=== PATIENT | female | born 1970 | race Caucasian/White ===

== ENCOUNTER → 2016-11-03 | Outpatient (CLI) | payer OTHER ==
--- NOTE | 2016-11-04 08:49 | MM ---
Reason for exam: screening (asymptomatic). Baseline mammogram. History: Patient has history of other cancer at age 44 and is nulliparous. Physical Findings: Nurse did not find any significant physical abnormalities on exam. MG Screening Mammo w CAD Bilateral CC and MLO view(s) were taken. The breast tissue is heterogeneously dense. This may lower the sensitivity of mammography. Finding #1: There is a typically benign equal density (isodense), partially obscured oval mass located 14 cm from the nipple in the upper outer quadrant, posterior position of the left breast. Finding #2: There are typically benign round, diffuse/scattered calcifications in the right breast. These results were verbally communicated with the patient and result sheet given to the patient on 11/03/16. ASSESSMENT: Incomplete: need additional imaging evaluation, BI-RAD 0 RECOMMENDATION: Ultrasound of the left breast. [facility] will attempt to contact patient to return for ultrasound.
--- NOTE | 2016-11-04 09:05 | USB ---
Reason for exam: additional evaluation requested from abnormal screening. History: Patient has history of other cancer at age 44 and is nulliparous. US Breast Workup Limited LT Left breast ultrasound demonstrates a 0.4 x 0.6 x 0.2cm oval lesion too small to characterize at 2 o'clock, a 1.2 x 1.2 x 0.7cm oval, cystic lesion at 2 o'clock and a 0.9 x 0.5 x 0.5cm oval, cystic lesion at 3 o'clock. These results were verbally communicated with the patient and result sheet given to the patient on 11/03/16. ASSESSMENT: Benign, BI-RAD 2 RECOMMENDATION: Return to routine screening mammogram schedule for both breasts.
== END | disposition home or self-care (01) ==
LOC: RADMAMWWP 15:30
PROVIDERS: ATTEND Internal Medicine
DX: Z12.31 Encounter for screening mammogram for malignant neoplasm of breast (principal); R92.8 Other abnormal and inconclusive findings on diagnostic imaging of breast; R92.2 Inconclusive mammogram
CPT/HCPCS: 76642; G0202

== ENCOUNTER → 2017-09-08 | Outpatient (CLI) | payer BC ==
--- NOTE | 2017-09-08 15:06 | XR ---
EXAMINATION TYPE: XR ribs LT w pa chest xray DATE OF EXAM: 09/08/2017 COMPARISON: NONE HISTORY: Left posterior lateral rib pain TECHNIQUE: One view of the chest and 4 views of the ribs are submitted FINDINGS: Lung appears clear. No consolidation, pleural effusion or pneumothorax. Heart size normal. Rib cage appears intact. Scoliotic curvature of the spine noted. IMPRESSION: No acute displaced rib fracture. If clinically warranted bone scan could BE obtained.
== END | disposition home or self-care (01) ==
LOC: RADXRMAIN 14:24
PROVIDERS: ATTEND Internal Medicine
DX: R07.89 Other chest pain (principal)

== ENCOUNTER → 2018-01-31 | Outpatient (CLI) | payer BC ==
--- NOTE | 2018-02-01 15:20 | MM ---
Reason for exam: screening (asymptomatic). Last mammogram was performed 1 year and 3 months ago. History: Patient has history of other cancer at age 44 and is nulliparous. Physical Findings: A clinical breast exam by your physician is recommended on an annual basis and results should be correlated with mammographic findings. MG Screening Mammo w CAD Bilateral CC and MLO view(s) were taken. Prior study comparison: November 03, 2016, bilateral MG screening mammo w CAD. The breast tissue is heterogeneously dense. This may lower the sensitivity of mammography. There is no discrete abnormality. No significant changes when compared with prior studies. ASSESSMENT: Negative, BI-RAD 1 RECOMMENDATION: Routine screening mammogram of both breasts in 1 year.
== END ==
LOC: RADMAMWWP 15:37
PROVIDERS: ATTEND Internal Medicine
DX: Z12.31 Encounter for screening mammogram for malignant neoplasm of breast (principal)
CPT/HCPCS: 77067

== ENCOUNTER → 2020-02-17 | Outpatient (CLI) | payer BC | END | disposition home or self-care (01) | LOC: LABPAT 09:45 | PROVIDERS: ATTEND Orthopaedic Surgery | DX: Z01.812 Encounter for preprocedural laboratory examination (principal) | CPT/HCPCS: 87070 ==

== ENCOUNTER → 2020-02-21 | Outpatient (CLI) | payer MEDICAID ==
[2020-02-21 11:30] LABS: Potassium 4.7 mmol/L (3.5-5.1)
[2020-02-21 11:32] LABS: Basophils # (A) 0.1 k/uL (0-0.2); Basophils % (A) 2 %; Eosinophils # (A) 0.3 k/uL (0-0.7); Eosinophils % (A) 6 %; HCT 37.5 % (34.0-46.0); HGB 12.1 gm/dL (11.4-16.0); Lymphocytes % (A) 23 %; MCH 31.1 pg (25.0-35.0); MCHC 32.3 g/dL (31.0-37.0); MCV 96.2 fL (80.0-100.0); Mean Platelet Volume 6.9; Monocytes # (A) 0.3 k/uL (0-1.0); Monocytes % (A) 6 %; Neutrophils # (A) 2.6 k/uL (1.3-7.7); Neutrophils % (A) 62 %; Platelet Count 319 k/uL (150-450); RDW 12.7 % (11.5-15.5); WBC 4.2 k/uL (3.8-10.6)
[2020-02-21 12:59] LABS: INR 1.1 (<1.2); Prothrombin Time 10.8 sec (9.0-12.0)
== END | disposition home or self-care (01) ==
LOC: LABPAT 10:28
PROVIDERS: ATTEND Orthopaedic Surgery
DX: Z01.818 Encounter for other preprocedural examination (principal); M17.12 Unilateral primary osteoarthritis, left knee
CPT/HCPCS: 36415; 80051; 85025; 85610

== ENCOUNTER 2020-02-24 10:32 | Day surgery (SDC) | payer BC, MEDICAID ==
[2020-02-21 09:03] VITALS: BMI 31.0
--- NOTE | 2020-02-23 11:49 | HP ---
HISTORY AND PHYSICAL REASON FOR ADMISSION: Surgery is scheduled for 02/24/2020 Rosey Lyon is a 49-year-old patient seen with symptomatic left knee osteoarthritis. We discussed options for treatment. She elected to proceed with left total knee arthroplasty. Consent was obtained. Clearance was provided by Dr. Kojo Ryan. PAST MEDICAL HISTORY: Gastroesophageal reflux disease, depression. PAST SURGICAL HISTORY: Throat and tongue surgery. MEDICATIONS: Omeprazole, ibuprofen, Prozac. ALLERGIES: None. SOCIAL HISTORY: She denies tobacco use. PHYSICAL EXAMINATION: Evaluation of the left knee: Range of motion negative 3-4 to 110. Mild effusion. Tenderness medial joint line. Crepitus along the medial and patellofemoral compartments with range of motion. There is pain with patellofemoral compression. Ligaments stable. Hip rotation without pain. Distal neurovascular exam is intact. RADIOGRAPHS: Left knee radiographs reveal severe osteoarthritic changes. IMPRESSION: 1. Left knee osteoarthritis. 2. Gastroesophageal reflux disease. PLAN: Left total knee arthroplasty. Surgery 02/24/2020. MMODL / IJN: [id number] /
[~2020-02-24 10:32] MED LIST: ACETAMINOPHEN TAB 500 MG TAB PO ONE; DEXAMETHASONE SOD PHOSPHATE 10 MG/ML 1 ML VIAL IV ONE; HYDROmorphone 0.5 MG/0.5 ML SYRINGE IVP PRN; MELOXICAM 7.5 MG TAB PO ONE; MIDAZOLAM 2 MG/2 ML VIAL IV PRN; ONDANSETRON 4 MG/2 ML VIAL IVP ONE; ROPIVACAINE 246.25 MG, EPINEPHrine 0.5 MG, KETOROLAC 30 MG, cloNIDine HCL/PF 80 MCG, WA... MISCELLANE ONE; SCOPOLAMINE 1.5MG/72HR PATCH TRANSDERM ONE; TRANEXAMIC ACID 1,000 MG in SODIUM CHLORIDE 0.9% 100 ML IVPB ONE; fentaNYL (PF) 50 MCG/ML 2 ML AMP IVP PRN
[2020-02-24] MEDS: LACTATED RINGERS 1,000 ML IV SCH ×2 (11:18→17:54)
[2020-02-24] MEDS ORDERED: fentaNYL (PF) 50 MCG/ML 2 ML AMP IV ONE (11:31)
[2020-02-24] MEDS ORDERED: MIDAZOLAM 2 MG/2 ML VIAL IV ONE (11:31)
[2020-02-24] MEDS ORDERED: ROPIVACAINE 0.2%-NS ON-Q PUMP 1,090 MG, EMPTY PAIN BALL 1 EACH MISCELLANE PRN (11:50)
--- NOTE | 2020-02-24 11:51 | P.ANPRN ---
Procedure Note - Anesthesia - Nerve Block Performed Left Adductor Canal Infusion Time Out Performed: Yes Date of Procedure: 02/24/20 Procedure Start Time: :30 Procedure Stop Time: :44 Location of Patient: PreOp Indication: Acute Post-Operative Pain, Dx/Pain Location, Requested by Surgeon Sedation Type: Sedate with meaningful contact maintained Preparation: Sterile Prep Position: Supine Catheter: Indwelling Needle Types: Pajunk Needle Gauge: 21 Ultrasound used to visualize needle placement: Yes Ultrasound used to observe medication spread: Yes Injectate: 0.5% Ropivacaine (see comment for volume) (15ml) Resistance on Injection: Normal Image Stored and Saved: Yes Events: Uneventful and Well Tolerated
[2020-02-24] MEDS ORDERED: PROPOFOL 10 MG/ML 20 ML VIAL IV ONE (12:26)
[2020-02-24] MEDS ORDERED: GLYCOPYRROLATE 0.2 MG/ML 2 ML VIAL ONE (12:26)
[2020-02-24] MEDS ORDERED: NEOSTIGMINE 1 MG/ML 10 ML VIAL ONE (12:26)
[2020-02-24] MEDS ORDERED: LIDOCAINE 1% INJ 10MG/ML (20 ML MDV) ONE (12:26)
[2020-02-24] MEDS ORDERED: fentaNYL (PF) 50 MCG/ML 2 ML AMP ONE (12:26)
[2020-02-24] MEDS ORDERED: ROCURONIUM 10 MG/ML (10 ML VIAL) IV ONE (12:26)
[2020-02-24] MEDS ORDERED: SUCCINYLCHOLINE CHLORIDE 100 MG/5 ML SYR IV ONE (12:26)
[2020-02-24] MEDS ORDERED: HYDROmorphone (PF) 1 MG/ML ONE (12:26)
[2020-02-24] MEDS ORDERED: MIDAZOLAM 2 MG/2 ML VIAL ONE (12:26)
[2020-02-24] MEDS ORDERED: TRANEXAMIC ACID 1,000 MG/10 ML VIAL ONE (12:26)
[2020-02-24] MEDS ORDERED: SODIUM CHLORIDE 0.9% 100 ML BAG ONE (12:26)
[2020-02-24] MEDS ORDERED: ceFAZolin 1,000 MG in SODIUM CHLORIDE 0.9% 1,000 ML IRRIGATION ONE (13:13)
[2020-02-24] MEDS ORDERED: LACTATED RINGERS 1,000 ML IV ONE (13:14)
[2020-02-24] MEDS ORDERED: HYDROmorphone 1 MG/ML 1 ML SYRINGE IVP PRN (14:15)
[2020-02-24] MEDS ORDERED: HYDROmorphone 0.5 MG/0.5 ML SYRINGE IVP PRN ×2 (14:15)
[2020-02-24] MEDS ORDERED: HYDROcodone/APAP 5-325MG 1 EACH TAB PO PRN ×2 (14:15)
[2020-02-24] MEDS ORDERED: ONDANSETRON 4 MG/2 ML VIAL IVP PRN (14:15)
[2020-02-24] MEDS ORDERED: NALOXONE 0.4 MG/ML 1 ML VIAL IV PRN (14:15)
--- NOTE | 2020-02-24 14:15 | P.OP ---
Date of Procedure: 02/24/20 Preoperative Diagnosis: Left knee osteoarthritis Postoperative Diagnosis: Left knee osteoarthritis Procedure(s) Performed: Left total knee arthroplasty Implants: 1. Depuy attune size 6 left cruciate retaining cemented femur 2. Depuy attune size 6 fixed bearing cemented tibial baseplate 3. Depuy attune size 6 fixed bearing cruciate retaining 10 mm polyethylene tibial insert 4. Depuy attune 38 mm all polyethylene cemented patella Anesthesia: GETA, local Surgeon: Sam Medley Waistline Joiner #1: Fernando Branch Estimated Blood Loss (ml): 40 Pathology: other (Bone) Condition: stable Disposition: PACU Indications for Procedure: 49-year-old patient seen with symptomatic left knee osteoarthritis. After treatment options were discussed, she elected to proceed with total knee arthroplasty. Operative Findings: See description of procedure Description of Procedure: Patient was taken to the operative suite after having an adductor canal catheter placed by the department of anesthesia. Patient underwent a general anesthetic by the department of anesthesia. Patient was given preoperative IV intake antibiotics and TXA. A well-padded tourniquet was placed about the left lower extremity. The lower extremity was then prepped and draped in the normal sterile orthopedic fashion. The extremity was elevated, a tourniquet was insufflated to 300. A standard anterior incision was made sharply through skin. Dissection was taken down through the subcutaneous soft tissues down to the extensor mechanism. A medial arthrotomy was performed, patella was everted and knee was flexed. There was advanced osteoarthritis noted. I introduced my distal intramedullary femoral drill. I then introduced the distal femoral cutting jig. Ryder SHEIKH secured the cutting jig with 2 pins. I held retractors in position while Ryder SHEIKH performed the distal femoral resection through the guide area we now removed her distal femoral cutting guide. We now placed our 4-in-1 femoral cutting block and positioned and it was secured with 2 pins by Ryder SHEIKH while I held the block in position. The distal femoral finishing was now completed. A proximal tibial cutting guide was positioned. I held the guide in the appropriate position with both hands well Ryder SHEIKH inserted stabilizing pins into the guide. Proximal tibial cut was made. We now placed a trial femoral component into position, along with an appropriate size tibial tray and insert. We now took the knee through range of motion and had full extension good flexion and good overall soft tissue balance noted. The patella was everted and stabilized with 2 towel clips held by Ryder SHEIKH while I performed a flush with patellar quad tendon utilizing a fresh sawblade. We templated the patella, appropriate drill holes were made. An appropriate trial patella was positioned, knee was taken through full range of motion with the patella tracking very nicely. The trial patella was removed. Drill holes were made through the femoral component. All trial components were removed after marking off the appropriate rotation of the tibia. Retractors were now positioned along the proximal tibia. An appropriate keel punch was made with the appropriate size tibial guide by myself on Ryder SHEIKH assisted by holding retractors. At this point appropriate size implants were chosen and opened. The joint was irrigated copiously with pulse lavage mechanical irrigation. The posterior capsule was infiltrated with local analgesic. The wound was irrigated with pulse lavage mechanical irrigation. We mixed antibiotic methylmethacrylate. We placed the knee into flexion. We placed multiple retractors assisted by Ryder SHEIKH to expose the proximal tibia. Once the methyl methacrylate was ready, the tibial component was cemented into place removing any excess methylmethacrylate form by both myself and Ryder SHEIKH. The femoral component was cemented into place removing the removing any excess methylmethacrylate performed by both myself and Ryder SHEIKH. We then inserted the appropriate size polyethylene tibial insert. We made sure that it was locked into position. We took the knee into full extension, and then back in a flexion making sure we had removed any excess methylmethacrylate. The patellar component was then cemented down and secured with clamp. Excess met hylmethacrylate removed. We kept the knee in full extension, patellar clamp in position until methylmethacrylate had hardened. Once it had hardened the patellar clamp was removed. The knee was taken through full range of motion. The patella tracked nicely. There was good soft tissue balancing. The tourniquet was now released. Additional hemostasis was achieved via electrocautery. A second gram of TXA was given. The wound again was irrigated with pulse lavage mechanical irrigation. The superficial soft tissues were infiltrated local analgesic. The extensor mechanism was repaired with Vicryl. We checked the repair with range of motion and it was stable. The subcutaneous soft tissues were repaired with Vicryl in layers. The skin was approximated with pernio/Dermabond. Sterile dressings were applied followed by loose web roll and Damion bandage. The patient was transferred to a bed, and taken to recovery in stable and satisfactory condition. Ryder SHEIKH assisted with this complex procedure.
--- NOTE | 2020-02-24 15:11 | XR ---
EXAMINATION TYPE: XR knee limited LT DATE OF EXAM: 02/24/2020 CLINICAL HISTORY: Left knee pain and arthritis status post total knee replacement. TECHNIQUE: Portable AP and crosstable lateral views of the left knee are obtained immediately postop eratively. COMPARISON: Left knee radiograph 10/23/2019 FINDINGS: Metallic hardware from total left knee arthroplasty is seen and appears satisfactory in al ignment and position. There is evidence of recent surgery with diffuse subcutaneous gas and vertical skin cary. IMPRESSION: METALLIC HARDWARE FROM TOTAL LEFT KNEE ARTHROPLASTY IS SATISFACTORY IN ALIGNMENT.
--- NOTE | 2020-02-24 17:03 | P.CONS ---
History of Present Illness - Reason for Consult Consult date: 02/24/20 Medical management - Chief Complaint Left knee pain - History of Present Illness This is a 49-year-old female with past medical history noted below significant for severe osteoarthritis of the left knee that failed conservative management. Patient is admitted to the hospital for elective total left knee arthroplasty. She is postoperative day #0. Patient does not have any specific concerns or complaints. I was asked to see her for medical management. Review of Systems Review of system: 14 points review of systems were obtained and were negative except to what were mentioned in the HPI. Past Medical History Past Medical History: Cancer, GERD/Reflux Additional Past Medical History / Comment(s): hx of oral and neck/cancer 2015 had chemo and radiation at that time. 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 has some Cognitive disabilities History of Any Multi-Drug Resistant Organisms: None Reported Additional Past Surgical History / Comment(s): sx to remove ca from neck and oral area Past Anesthesia/Blood Transfusion Reactions: No Reported Reaction Past Psychological History: Depression Smoking Status: Never smoker Past Alcohol Use History: None Reported Past Drug Use History: None Reported - Past Family History Father Family Medical History: Cancer Additional Family Medical History / Comment(s): throat Medications and Allergies Home Medications Medication Instructions Recorded Confirmed Type FLUoxetine HCL [PROzac] 60 mg PO DAILY 02/21/20 02/21/20 History Omeprazole 20 mg PO DAILY 02/21/20 02/21/20 History Allergies Allergy/AdvReac Type Severity Reaction Status Date / Time No Known Allergies Allergy Verified 02/21/20 08:46 Physical Exam Vitals: Vital Signs Temp Pulse Pulse Resp BP Pulse Ox 02/24/20 15:18 81 16 113/61 100 02/24/20 15:05 77 16 113/59 99 02/24/20 14:50 80 16 115/58 100 02/24/20 14:37 97.9 F 96 18 117/61 96 02/24/20 11:59 98 F 72 20 119/73 98 Intake and Output 02/24/20 02/24/20 02/24/20 06:59 14:59 22:59 Intake Total 1751 300 Output Total 40 Balance 1711 300 Intake: IV 1751 300 Output: Estimated Blood Loss 40 Other: Weight 81.9 kg General: The patient is awake and alert, in no distress Eye: there is normal conjunctiva bilaterally. Neck: The neck is supple, there is no JVD. Cardiovascular: Normal S1-S2, no S3-S4, no murmurs. Respiratory: Lungs clear to auscultation bilaterally Gastrointestinal: Abdomen is soft, nontender Musculoskeletal: There is no pedal edema. Neurological:. Speech is normal. Skin: Skin is warm and dry Assessment and Plan Assessment: 1. Postoperative day #0 status post total left knee arthroplasty, postoperative care and pain management per orthopedic. 2. DVT prophylaxis with subcu Lovenox 3. Underlying depression and GERD: Continue home medications Today, I reviewed her medication list. Continue current regimen. PT/OT consultation. We will obtain CBC and BMP in the morning. Thank you very much for the consultation. We will continue to follow up on the patient closely with you.
[2020-02-24] MEDS ORDERED: SENNOSIDES-DOCUSATE SODIUM 1 EACH TAB PO SCH (21:00)
[2020-02-25] MEDS: LACTATED RINGERS 1,000 ML IV SCH ×2 (01:56)
--- NOTE | 2020-02-25 05:33 | P.PN ---
Progress Note - Text Progress Note Date: 02/25/20 49-year-old female status post left total knee arthroplasty postop day #1. She had an adductor canal catheter placed. Overall doing well. Does endorse mild numbness down left leg likely secondary to On-Q pump. She does endorse light quadricep weakness again likely due to On-Q pump. Site looks clean dry and intact. Goals to ambulate today.
[2020-02-25 06:29] LABS: Basophils % (A) 0 %; Eosinophils # (A) 0.1 k/uL (0-0.7); Eosinophils % (A) 1 %; HCT 32.5 % (34.0-46.0); HGB 10.7 gm/dL (11.4-16.0); Lymphocytes # (A) 1.2 k/uL (1.0-4.8); Lymphocytes % (A) 14 %; MCH 31.1 pg (25.0-35.0); MCHC 32.8 g/dL (31.0-37.0); MCV 94.9 fL (80.0-100.0); Mean Platelet Volume 7.1; Monocytes # (A) 0.6 k/uL (0-1.0); Monocytes % (A) 6 %; Neutrophils # (A) 6.7 k/uL (1.3-7.7); Neutrophils % (A) 78 %; Platelet Count 250 k/uL (150-450); RBC 3.43 m/uL (3.80-5.40); RDW 12.8 % (11.5-15.5); WBC 8.6 k/uL (3.8-10.6)
[2020-02-25] MEDS ORDERED: PANTOPRAZOLE 40 MG TABLET PO SCH (07:30)
[2020-02-25 07:47] VITALS: BP 115/67; PULSE 95; RESP 17; TEMP 98.6
[2020-02-25] MEDS ORDERED: MELOXICAM 7.5 MG TAB PO SCH (09:00)
[2020-02-25] MEDS ORDERED: FLUoxetine HCL 20 MG CAP PO SCH (09:00)
[2020-02-25] MEDS ORDERED: ENOXAPARIN 30 MG/0.3 ML SYRINGE SQ SCH (09:00)
[2020-02-25 09:10] LABS: African American GFR (CKD) 119.6 (60.0-200.0); Anion Gap 6.2 mmol/L (4.00-12.00); BUN/Creat Ratio 12.86 Ratio (12.00-20.00); Calcium 9.1 mg/dL (8.7-10.3); Carbon Dioxide 25.8 mmol/L (21.6-31.8); Non-African American GFR(CKD) 103.2 (60.0-200.0); Potassium 4.2 mmol/L (3.5-5.5)
--- NOTE | 2020-02-25 10:48 | P.PN ---
Subjective Progress Note Date: 02/25/20 Principal diagnosis: Status post left total knee arthroplasty Patient is evaluated today at bedside, she is resting comfortably. She's done very well with therapy. She denies any chest pain or shortness of breath. Pain is well-controlled. Objective - Vital Signs Vital signs: Vital Signs Temp 98.6 F 02/25/20 07:00 Pulse 95 02/25/20 08:00 Resp 17 02/25/20 08:00 BP 115/67 02/25/20 07:00 Pulse Ox 98 02/25/20 07:00 Intake & Output 02/24/20 02/25/20 02/25/20 18:59 06:59 18:59 Intake Total 2050 Output Total 40 Balance 2010 Weight 81.9 kg Intake: IV 2050 Output: Estimated Blood Loss 40 Other: Voiding Method Toilet Toilet # Voids 1 1 - Exam Left lower extremity: Incision is clean, dry, and intact. The Phone dressing is in good condition. There is minimal soft tissue swelling and ecchymosis surrounding the medial and lateral aspects of the incision. Calf is soft, no tenderness with palpation. Plantar flexion, dorsiflexion, EHL, FHL are intact. Sensory exam to light touch throughout the extremity is intact, dorsal pedis pulses 2+. - Labs CBC & Chem 7: 02/25/20 05:35 02/25/20 05:35 Labs: Abnormal Lab Results - Last 24 Hours (Table) 02/25/20 Range/Units 05:35 RBC 3.43 L (3.80-5.40) m/uL Hgb 10.7 L (11.4-16.0) gm/dL Hct 32.5 L (34.0-46.0) % Assessment and Plan Assessment: Status post left total knee arthroplasty Plan: Pain control, plan for discharge home on oral medication Wound care instructions discussed DVT prophylaxis, aspirin 81 mg twice a day medical recommendations therapy and nursing after discharge Plan for discharge home today Time with Patient: Less than 30
--- NOTE | 2020-02-25 10:51 | P.DS ---
Providers Date of admission: 02/24/2020 Expected date of discharge: 02/25/20 Attending physician: Sam Medley Consults: 02/24/20 14:15 Consult Physician Routine Consulting Provider: Nora Acuna Consult Reason/Comments: Medical management Do you want consulting provider notified?: Yes Primary care physician: Stated None Hospital Course: Date of admission: 02/24/2020 Date of discharge: 02/25/2020 Admission diagnosis: Status post left knee hip arthroplasty Discharge diagnosis: Same Attending physician: Dr. Medley Surgical procedures: Left total knee arthroplasty Brief history: Patient is a 49-year-old female with a history of progressive primary left knee osteoarthritis. At this point patient has failed conservative treatment measures and has opted to proceed with a elective left total knee arthroplasty. Hospital course: Details of patient's surgery can be found in operative report. Patient tolerated the procedure well and was subsequently transported to orthopedic floor. Patient's orthopeidc and medical care was provided daily. Patient had daily laboratory tests performed for evaluation of overall blood counts. Patient had daily physical therapy to include strengthening range of motion as well as education with walker ambulation. Patient was treated with Lovenox for their postoperative DVT prophylaxis during their inpatient stay. Patient was noted to have a relatively uneventful postoperative course. Patient reported satisfactory pain control with oral pain medications by postoperative day 0. Patient showed satisfactory progress with physical therapy. Patient moved steadily through the program and had no difficulty meeting the goals by postoperative day 1. Given patient's otherwise satisfactory course and having met physical therapy goals, plan is to discharge patient home on postoperative day 1. Discharge condition/disposition: Patient will be discharged home in stable condition. Discharge medications: Instructions are given on resumption of patient's normal daily medications per primary care recommendation, in addition patient will be prescribed [place] 5 mg/325 mg, Colace 100 mg, aspirin 81 mg. Discharge instructions: 1. Wound care and infection precautions, keep incision dry and covered while showering no lotions, creams, moisturizers. No soaking, tubs, pools, hottubs. Do not scrub over the incision. 2. Weight-bear as tolerated with walker / cane until follow-up. 3. Ice and elevate when necessary. Do not exceed 20 minutes per hour with ice pack. 4. Utilize compression sleeve until seen at first follow up appointment. 5. Visiting nursing care. 6. Home physical therapy including home CPM. 7. Pain meds and anticoagulants per prescription. 8. Pain medication has potential to cause constipation. Increase oral fluid and fiber intake. Contact primary care provider if you have not had a bowel movement within 48 hours after discharge 9. No anti-inflammatory medication until discussed at first post operative visit, this including Motrin, Aleve, Mobic, Diclofenac. 10. Follow up in office at 2 weeks postop with Ryder Branch PA-C 11. Follow up with your primary care doctor 7-10 days after discharge. 12. Contact [facility] with any questions, . Procedures: Left total knee arthroplasty Patient Condition at Discharge: Good Plan - Discharge Summary Discharge Rx Participant: No New Discharge Prescriptions: New Aspirin [Adult Low Dose Aspirin EC] 81 mg PO BID #60 tablet. Docrockyte [Colace] 100 mg PO DAILY #30 capsule Hydrocodone/Acetaminophen [[place] 5-325] 1 - 2 each PO Q6HR PRN #56 tab PRN Reason: Pain Continue FLUoxetine HCL [PROzac] 60 mg PO DAILY Omeprazole 20 mg PO DAILY Discharge Medication List FLUoxetine HCL [PROzac] 60 mg PO DAILY 02/21/20 [History] Omeprazole 20 mg PO DAILY 02/21/20 [History] Aspirin [Adult Low Dose Aspirin EC] 81 mg PO BID #60 tablet. 02/25/20 [Rx] Docusate [Colace] 100 mg PO DAILY #30 capsule 02/25/20 [Rx] Hydrocodone/Acetaminophen [[place] 5-325] 1 - 2 each PO Q6HR PRN #56 tab 02/25/20 [Rx] Follow up Appointment(s)/Referral(s): Fernando Branch PAC [PHYSICIAN ICT PROGRAMMER] - 03/11/20 2:30 pm [facility] Visiting Nurse, [NON-STAFF] - Activity/Diet/Wound Care/Special Instructions: Orthopedic Discharge Instructions: 1. Wound care and infection precautions, keep incision dry and covered while showering, no lotions, creams, moisturizers. No soaking, pools, hot tubs. Do not scrub over incision. Okay to remove from dressing on 03/05/2020, okay to shower after removal of bandage 2. Weight-bear as tolerate with walker / cane until follow-up. 3. Ice and elevate when necessary. Do not exceed 20 minutes per hour with ice pack. 4. Utilize compression sleeve until seen at first follow up appointment. 5. Pain meds and anticoagulants per prescription. 6. Pain medication has potential to cause constipation. Increase oral fluid and fiber intake. Contact primary care provider if you have not had a bowel movement within 48 hours after discharge. 7. No anti-inflammatory medication until discussed at first post operative visit, this including Motrin, Aleve, Mobic, Diclofenac. 8. Follow up in office at 2 weeks postop with Ryder Branch PA-C 9. Follow up with your primary care doctor 7-10 days after discharge. 10. Contact [facility] with any questions, [phone]. 11. *Please call [facility] once home to arrange delivery of Continuous Passive Motion (CPM) machine: [phone]. Discharge Disposition: HOME WITH HOME HEALTH SERVICES
--- NOTE | 2020-02-25 18:31 | P.PN ---
Subjective Progress Note Date: 02/25/20 (delayed charting seen at 0930) Principal diagnosis: knee pain Patient is a 49-year-old female with a history of cognitive delay, GERD, and prior head and neck cancer who presented for elective left total knee arthroplasty. She underwent surgery on 02/24 without any immediate postoperative complications. Patient seen and examined at bedside. No chest pain, no shortness of breath, pain farily well controlled. General: non toxic, no distress, appears at stated age Derm: warm, dry Head: atraumatic, normocephalic, symmetric Eyes: EOMI, no lid lag, anicteric sclera Mouth: no lip lesion, mucus membranes moist Cardiovascular: S1S2 reg, no murmur, positive posterior tibial pulse bilateral, Lungs: CTA bilateral, no rhonchi, no rales , no accessory muscle use Abdominal: soft, nontender to palpation, no guarding, no appreciable organomegaly Ext: no gross muscle atrophy, trace edema, no contractures Neuro: CN II-XI grossly intact, no focal neuro deficits Psych: Alert, oriented, appropriate affect Left total knee arthroplasty. ASA BID GERD - PPI Cognitive delay -supportive care Objective - Vital Signs Vital signs: Vital Signs Temp 98.6 F 02/25/20 07:00 Pulse 95 02/25/20 08:00 Resp 17 02/25/20 08:00 BP 115/67 02/25/20 07:00 Pulse Ox 98 02/25/20 07:00 Intake & Output 02/24/20 02/25/20 02/25/20 18:59 06:59 18:59 Intake Total 2050 Output Total 40 2010 Weight 81.9 kg Intake: IV 2050 Output: Estimated Blood Loss 40 Other: Voiding Method Toilet Toilet # Voids 1 1 - Labs CBC & Chem 7: 02/25/20 05:35 02/25/20 05:35 Labs: Abnormal Lab Results - Last 24 Hours (Table) 02/25/20 Range/Units 05:35 RBC 3.43 L (3.80-5.40) m/uL Hgb 10.7 L (11.4-16.0) gm/dL Hct 32.5 L (34.0-46.0) %
== END 2020-02-25 12:07 | disposition home health service (06) ==
LOC: OR 10:32 → 4SSUR 14:08 → OR 02-25 12:07
PROVIDERS: ATTEND Orthopaedic Surgery
DX: M17.12 Unilateral primary osteoarthritis, left knee (principal); K21.9 Gastro-esophageal reflux disease without esophagitis; F32.9 Major depressive disorder, single episode, unspecified; I10 Essential (primary) hypertension; Z85.810 Personal history of malignant neoplasm of tongue; Z79.82 Long term (current) use of aspirin; Z92.21 Personal history of antineoplastic chemotherapy; Z92.3 Personal history of irradiation; Z80.8 Family history of malignant neoplasm of other organs or systems
CPT/HCPCS: 97110; 97161; 64448; 76942; 80048; 85025; 73560; 27447; C1776; C1713; J2250; J0171; J1100; J2710; J0690 ×3; J2405; J2001; J3010; J1885; J1650; J1170; J2795 ×2; J0330; J2704; J0735

== ENCOUNTER 2020-07-28 09:52 | Emergency (ER) | payer MEDICAID, OTHER ==
[2020-07-28 10:03] VITALS: RESP 18
[2020-07-28] MEDS ORDERED: SODIUM CHLORIDE 0.9% 1,000 ML IV STA (10:11)
[2020-07-28] MEDS ORDERED: SODIUM CHLORIDE 0.9% 500 ML 500 ML IV STA (10:11)
[2020-07-28] MEDS ORDERED: DIPH,PERTUS(ACELL)TETVAC-LF 0.5 ML VIAL IM ONE (10:12)
[2020-07-28] MEDS ORDERED: ACETAMINOPHEN TAB 500 MG TAB PO STA (10:12)
[2020-07-28 10:31] LABS: Basophils % (A) 1 %; Eosinophils # (A) 0.4 k/uL (0-0.7); Eosinophils % (A) 6 %; HCT 36.2 % (34.0-46.0); HGB 12.1 gm/dL (11.4-16.0); Lymphocytes # (A) 1.1 k/uL (1.0-4.8); Lymphocytes % (A) 18 %; MCHC 33.4 g/dL (31.0-37.0); MCV 89.7 fL (80.0-100.0); Mean Platelet Volume 7.8; Monocytes # (A) 0.3 k/uL (0-1.0); Monocytes % (A) 4 %; Neutrophils # (A) 4.2 k/uL (1.3-7.7); Neutrophils % (A) 70 %; Platelet Count 309 k/uL (150-450); RBC 4.03 m/uL (3.80-5.40); RDW 13.7 % (11.5-15.5)
[2020-07-28 10:42] LABS: Albumin 3.8 g/dL (3.5-5.0); Calcium 9.4 mg/dL (8.4-10.2); Magnesium 1.8 mg/dL (1.6-2.3); Potassium 4.1 mmol/L (3.5-5.1); Total Bilirubin 0.3 mg/dL (0.2-1.3); Total Protein 6.5 g/dL (6.3-8.2)
--- NOTE | 2020-07-28 10:43 | XR ---
EXAMINATION TYPE: XR chest 2V DATE OF EXAM: 07/28/2020 COMPARISON: 09/08/2017 HISTORY: 50-year-old female R07.89, chest wall pain. TECHNIQUE: AP and lateral views FINDINGS: The cardiomediastinal silhouette, aorta, and pulmonary vasculature are within normal limits. Lungs an d pleural spaces are clear. There is mild to moderate degenerative disc disease throughout an essential weighted lower thoracic k yphosis. IMPRESSION: No acute cardiopulmonary process. Accentuated lower thoracic kyphosis with mild to moderate multileve l degenerative disc disease.
[2020-07-28 10:53] LABS: Prothrombin Time 10.7 sec (9.0-12.0)
--- NOTE | 2020-07-28 10:57 | CT ---
EXAMINATION TYPE: CT brain wo con DATE OF EXAM: 07/28/2020 COMPARISON: None HISTORY: 50-year-old female Syncope, facial trauma TECHNIQUE: Examination was done in axial plane without intravenous contrast. Coronal and sagittal r econstructions performed. CT DLP: 1315.4 mGycm Automated exposure control for dose reduction was used. FINDINGS: There is no evidence of acute intracranial hemorrhage, acute ischemic changes, mass, mass-effect, or extra-axial fluid collection. There is no effacement of cerebral sulci or basal subarachnoid cister ns. There is no hydrocephalus. There is no midline shift. Nunez-white matter distinction is preserv ed. Mastoid air cells well pneumatized. No calvarial fracture. Facial bones reported separately. IMPRESSION: No acute intracranial abnormality seen. Facial bones reported separately.
--- NOTE | 2020-07-28 11:02 | ED ---
General Adult HPI - General Chief complaint: Syncope Stated complaint: [facility]- fall Time Seen by Provider: 07/28/20 10:01 Source: patient, EMS Mode of arrival: EMS Limitations: no limitations - History of Present Illness Initial comments: 50-year-old female patient presents to the emergency department today for evaluation after experiencing a syncopal event at work. Patient states she started to feel hot and dizzy stepped outside of her room and passed out. She fell forward hitting her face. She is unsure how long she was unconscious for. Patient is reporting facial pain especially over the left eye and upper lip. Denies any headache, blurred vision, double vision. States she does feel weak and dizzy still. Denies any numbness, tingling, weakness to her extremities. She denies any chest pain or shortness of breath. Denies any bloody or black stools. Denies current nausea vomiting or diarrhea. Denies history of passing out. She is treated for a pressure but denies any other medical problems. Patient denies any recent rash, fever, chills, cough, abdominal pain, constipation, back pain, hematuria, dysuria, urinary urgency, urinary frequency, or any other complaints. - Related Data Home Medications Medication Instructions Recorded Confirmed FLUoxetine HCL [PROzac] 60 mg PO DAILY 02/21/20 07/28/20 Ibuprofen [Motrin] 800 mg PO TID PRN 07/28/20 07/28/20 Omeprazole 40 mg PO DAILY 07/28/20 07/28/20 Allergies Allergy/AdvReac Type Severity Reaction Status Date / Time No Known Allergies Allergy Verified 07/28/20 12:48 Review of Systems ROS Statement: Those systems with pertinent positive or pertinent negative responses have been documented in the HPI. ROS Other: All systems not noted in ROS Statement are negative. 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 Vital signs upon presentation are temperature 97.8F, pulse 73, respirations 18, blood pressure 95/70, pulse ox 100% on room air.) Eye exam: Present: normal appearance, PERRL, EOMI. Absent: scleral icterus, conjunctival injection, nystagmus, periorbital swelling ENT exam: Present: normal exam, normal oropharynx, mucous membranes moist Respiratory exam: Present: normal lung sounds bilaterally. Absent: respiratory distress, wheezes, rales, rhonchi, stridor Cardiovascular Exam: Present: regular rate, normal rhythm, normal heart sounds. Absent: systolic murmur, diastolic murmur, rubs, gallop, clicks GI/Abdominal exam: Present: soft, normal bowel sounds. Absent: distended, tenderness, guarding, rebound, rigid Neurological exam: Present: alert, oriented X3, CN II-XII intact Psychiatric exam: Present: normal affect, normal mood Skin exam: Present: warm, dry, intact, normal color. Absent: rash Course Vital Signs 07/28/20 07/28/20 07/28/20 09:56 10:04 10:05 Temperature 97.8 F Pulse Rate 73 Pulse Rate [ 72 73 [employer] Attendant ] Pulse Rate [ Sitting [employer] Attendant] Pulse Rate [ Standing [employer] Attendant ] Pulse Rate [ Supine [employer] Attendant] Respiratory 18 18 18 Rate Blood Pressure 95/70 Blood Pressure 116/31 [Right Arm Sitting] Blood Pressure [Right Arm Standing] Blood Pressure 111/70 [Right Arm Supine] O2 Sat by Pulse 100 100 100 Oximetry 07/28/20 07/28/20 07/28/20 10:06 10:20 11:16 Temperature Pulse Rate 68 65 Pulse Rate [ 72 [employer] Plant Attendant ] Pulse Rate [ Sitting [employer] Plant Attendant] Pulse Rate [ Standing [employer] Plant Attendant ] Pulse Rate [ Supine [employer] Attendant] Respiratory 18 18 18 Rate Blood Pressure 116/70 106/63 Blood Pressure [Right Arm Sitting] Blood Pressure 88/23 [Right Arm Standing] Blood Pressure [Right Arm Supine] O2 Sat by Pulse 100 100 100 Oximetry 07/28/20 07/28/20 11:58 13:03 Temperature 97.7 F Pulse Rate 74 Pulse Rate [ Waste[employer] Plant Attendant ] Pulse Rate [ 87 Sitting Waste[employer] Plant Attendant] Pulse Rate [ 77 Standing Waste[employer] Plant Attendant ] Pulse Rate [ 78 Supine Waste[employer] Plant Attendant] Respiratory 18 18 Rate Blood Pressure 116/67 Blood Pressure 132/81 [Right Arm Sitting] Blood Pressure 122/76 [Right Arm Standing] Blood Pressure 128/74 [Right Arm Supine] O2 Sat by Pulse 100 100 Oximetry EKG Findings - EKG Comments: EKG Findings:: EKG obtained at 954 shows normal sinus rhythm with a prolonged QT interval. Ventricular rate is 76, ME interval 162, QRS duration 102, QT 4:30, QTC 483. No evidence of ST elevation or depression. Procedures - Laceration Laceration #1 Consent Obtained: verbal consent Indication: laceration Site: lip Size (cm): 1 Description: linear Depth: simple, single layer Anesthetic Used: lidocaine 1% Anesthesia Technique: local infiltration Amount (mls): 1 Pre-repair: irrigated extensively Type of Sutures: nylon Size of Sutures: 6-0 Number of Sutures: 3 Technique: simple, interrupted Patient Tolerated Procedure: well, no complications Medical Decision Making - Medical Decision Making 50-year-old female patient presents to the emergency department today for evaluation of syncope, facial injury. Symptoms started while at work. Physical examination did reveal left suborbital abrasion and ecchymosis. She also had laceration to the lip over the vermilion border in the left upper she also had oh larger one to 2 cm laceration to the mucosal surface of the other upper lip which we did not repair. Labs reviewed and are unremarkable. EKG unremarkable. CT facial bones showed nasal bone fracture, CT brain negative. She did have orthostatic hypotension, decreased to the 80s systolic while standing became very dizzy. She was given 1500 mL of normal saline. Afterwards blood pressures were normal, orthostatic vital signs were normal, and she was able to ambulate to the bathroom and back without difficulty. States she is feeling better. Did update her tetanus vaccine. She will be discharged follow up with her primary care physician for recheck in 1-2 days. She is instructed to return in 3 days to have the stitches removed. She is educated regarding wound care and signs or symptoms of infection. She is instructed to avoid blowing her nose. Instructed to follow-up with ENT specialist in 1-2 days. Return parameters were discussed in detail. Patient and caregiver verbalized understanding and agree with this plan. Case discussed with my attending Dr. Pineda. - Lab Data Result diagrams: 07/28/20 10:20 07/28/20 10:20 Lab Results 07/28/20 07/28/2007/28/21 Range/Units 10:20 10:20 10:20 WBC 6.0 (3.8-10.6) k/uL RBC 4.03 (3.80-5.40) m/uL Hgb 12.1 (11.4-16.0) gm/dL Hct 36.2 (34.0-46.0) % MCV 89.7 (80.0-100.0) fL MCH 30.0 (25.0-35.0) pg MCHC 33.4 (31.0-37.0) g/dL RDW 13.7 (11.5-15.5) % Plt Count 309 (150-450) k/uL MPV 7.8 Neutrophils % 70 % Lymphocytes % 18 % Monocytes % 4 % Eosinophils % 6 % Basophils % 1 % Neutrophils # 4.2 (1.3-7.7) k/uL Lymphocytes # 1.1 (1.0-4.8) k/uL Monocytes # 0.3 (0-1.0) k/uL Eosinophils # 0.4 (0-0.7) k/uL Basophils # 0.0 (0-0.2) k/uL PT 10.7 (9.0-12.0) sec INR 1.0 (<1.2) APTT 20.8 L (22.0-30.0) sec Sodium (137-145) mmol/L Potassium (3.5-5.1) mmol/L Chloride (98-107) mmol/L Carbon Dioxide (22-30) mmol/L Anion Gap mmol/L BUN (7-17) mg/dL Creatinine (0.52-1.04) mg/dL Est GFR (CKD-EPI)AfAm (>60 ml/min/1.73 sqM) Est GFR (CKD-EPI)NonAf (>60 ml/min/1.73 sqM) Glucose (74-99) mg/dL Calcium (8.4-10.2) mg/dL Magnesium (1.6-2.3) mg/dL Total Bilirubin (0.2-1.3) mg/dL AST (14-36) U/L ALT (4-34) U/L Alkaline Phosphatase (38-126) U/L Troponin I (0.000-0.034) ng/mL Total Protein (6.3-8.2) g/dL Albumin (3.5-5.0) g/dL Urine Color Yellow Urine Appearance Cloudy H (Clear) Urine pH 5.5 (5.0-8.0) Ur Specific Ubly 1.033 (1.001-1.035) Urine Protein 1+ H (Negative) Urine Glucose (UA) Negative (Negative) Urine Ketones 1+ H (Negative) Urine Blood Moderate H (Negative) Urine Nitrite Negative (Negative) Urine Bilirubin Negative (Negative) Urine Urobilinogen 3.0 (<2.0) mg/dL Ur Leukocyte Esterase Small H (Negative) Urine RBC 7 H (0-5) /hpf Urine WBC 2 (0-5) /hpf Ur Squamous Epith Cells 7 H (0-4) /hpf Urine Bacteria Occasional H (None) /hpf Hyaline Casts 51 H (0-2) /lpf Urine Mucus Many H (None) /hpf 07/28/20 07/28/20 Range/Units 10:20 10:20 WBC (3.8-10.6) k/uL RBC (3.80-5.40) m/uL Hgb (11.4-16.0) gm/dL Hct (34.0-46.0) % MCV (80.0-100.0) fL MCH (25.0-35.0) pg MCHC (31.0-37.0) g/dL RDW (11.5-15.5) % Plt Count (150-450) k/uL MPV Neutrophils % % Lymphocytes % % Monocytes % % Eosinophils % % Basophils % % Neutrophils # (1.3-7.7) k/uL Lymphocytes # (1.0-4.8) k/uL Monocytes # (0-1.0) k/uL Eosinophils # (0-0.7) k/uL Basophils # (0-0.2) k/uL PT (9.0-12.0) sec INR (<1.2) APTT (22.0-30.0) sec Sodium 139 (137-145) mmol/L Potassium 4.1 (3.5-5.1) mmol/L Chloride 107 (98-107) mmol/L Carbon Dioxide 22 (22-30) mmol/L Anion Gap 10 mmol/L BUN 20 H (7-17) mg/dL Creatinine 0.99 (0.52-1.04) mg/dL Est GFR (CKD-EPI)AfAm 78 (>60 ml/min/1.73 sqM) Est GFR (CKD-EPI)NonAf 68 (>60 ml/min/1.73 sqM) Glucose 131 H (74-99) mg/dL Calcium 9.4 (8.4-10.2) mg/dL Magnesium 1.8 (1.6-2.3) mg/dL Total Bilirubin 0.3 (0.2-1.3) mg/dL AST 22 (14-36) U/L ALT 14 (4-34) U/L Alkaline Phosphatase 103 (38-126) U/L Troponin I <0.012 (0.000-0.034) ng/mL Total Protein 6.5 (6.3-8.2) g/dL Albumin 3.8 (3.5-5.0) g/dL Urine Color Urine Appearance (Clear) Urine pH (5.0-8.0) Ur Specific Ubly (1.001-1.035) Urine Protein (Negative) Urine Glucose (UA) (Negative) Urine Ketones (Negative) Urine Blood (Negative) Urine Nitrite (Negative) Urine Bilirubin (Negative) Urine Urobilinogen (<2.0) mg/dL Ur Leukocyte Esterase (Negative) Urine RBC (0-5) /hpf Urine WBC (0-5) /hpf Ur Squamous Epith Cells (0-4) /hpf Urine Bacteria (None) /hpf Hyaline Casts (0-2) /lpf Urine Mucus (None) /hpf - Radiology Data Radiology results: report reviewed, image reviewed Disposition Clinical Impression: Syncope, Orthostatic hypotension, Nasal bone fracture, Facial contusion, Laceration of face Disposition: HOME SELF-CARE Condition: Good Instructions (If sedation given, give patient instructions): Care For Your Stitches (ED), Nasal Fracture (ED), Laceration (ED), Syncope (ED) Additional Instructions: Avoid blowing your nose. Follow-up with ENT specialist as soon as possible. Apply ice to the painful areas. Keep wounds clean and dry. Increase fluids. Follow up with her primary care physician for recheck in 1-2 days. Return Return to the emergency department for any new, worsening, or concerning symptoms. Is patient prescribed a controlled substance at d/c from ED?: No Referrals: Kojo Ryan MD [Primary Care Provider] - 1-2 days Time of Disposition: 13:43
--- NOTE | 2020-07-28 11:02 | CT ---
EXAMINATION TYPE: CT facial bones wo con DATE OF EXAM: 07/28/2020 COMPARISON: None HISTORY: 50-year-old female with pain after Syncope, Facial trauma TECHNIQUE: Contiguous axial scanning of the facial bones without IV contrast. Coronal and sagittal re constructions performed. CT DLP: Included with brain DLP of 1315.4 mGycm Automated exposure control for dose reduction was used. FINDINGS: Numerous surgical clips along the floor the mouth and submandibular regions. The mandible, TMJ's, pterygoid plates, zygomatic arches are intact. Mild mucosal thickening floor of the left maxillary sinus. Trace mucosal thickening ethmoid air cells . No air-fluid levels. Orbits and globes appear grossly intact. Slight fragmentation of the right paramedian nasal bone, axial image 55. Suspect a minimally angulate d fracture of the left nasal bone, axial image 54. No significant overlying soft tissue swelling. No additional facial bone fracture identified. IMPRESSION: SUBTLE NASAL BONE FRACTURES ARE SUGGESTED, MILDLY COMMINUTED ON THE RIGHT AND MINIMALLY ANGULATED ON THE LEFT. NO ADDITIONAL FACIAL BONE FRACTURE SEEN.
[2020-07-28 11:13] LABS: Partial Thromboplastin Time 20.8 sec (22.0-30.0)
[2020-07-28 12:00] VITALS: TEMP 97.7
[2020-07-28] MEDS ORDERED: LIDOCAINE 1% INJ 10MG/ML (20 ML MDV) SQ ONE (12:57)
[2020-07-28 13:08] VITALS: BP 128/74; PULSE 78
[2020-07-28 13:42] LABS: Appearance,Urine Cloudy (Clear); Bacteria,Urine Occasional /hpf; Bilirubin,Urine Negative (Negative); Blood,Urine Moderate (Negative); Color,Urine Yellow; Glucose,Urine (UA) Negative (Negative); Hyaline Casts,Urine 51 /lpf (0-2); Ketones,Urine 1+ (Negative); Leukocyte Esterase,Urine Small (Negative); Mucus,Urine Many /hpf; Nitrite,Urine Negative (Negative); PH, Urine 5.5 (5.0-8.0); Protein,Urine 1+ (Negative); RBC,Urine 7 /hpf (0-5); Specific Gravity,Urine 1.033 (1.001-1.035); Squamous Epithelial Cell,Urine 7 /hpf (0-4); WBC,Urine 2 /hpf (0-5)
[2020-07-28] MEDS ORDERED: BACITRACIN OINT 1 EACH PACKET TOPICAL ONE (13:43)
[2020-07-28] MEDS ORDERED: ACET/COD 300 MG/30 MG STARTER PACK 6 TAB BTL PO STA (13:43)
== END 2020-07-28 14:01 | disposition home or self-care (01) ==
LOC: EC 09:52
DX: S02.2XXA Fracture of nasal bones, initial encounter for closed fracture (principal); S01.511A Laceration without foreign body of lip, initial encounter; I95.1 Orthostatic hypotension; F32.9 Major depressive disorder, single episode, unspecified; Z79.899 Other long term (current) drug therapy; Z85.89 Personal history of malignant neoplasm of other organs and systems; Z23 Encounter for immunization; W18.09XA Striking against other object with subsequent fall, initial encounter; Y92.69 Other specified industrial and construction area as the place of occurrence of the external cause; Y99.0 Civilian activity done for income or pay
CPT/HCPCS: 36415; 93005; 80053; 83735; 84484; 85025; 85610; 85730; 81001; 71046; 70486; 70450; 90715; 99285; 12011; 96360; 96361; 90471; J2001

== ENCOUNTER → 2021-01-22 | Outpatient (CLI) | payer MEDICAID ==
--- NOTE | 2021-01-22 12:17 | FL ---
EXAMINATION TYPE: FL barium swallow w video DATE OF EXAM: 01/22/2021 CLINICAL HISTORY: 50-year-old female dysphasia, sensation of solid foods sticking in the throat. TECHNIQUE: Deglutition study is performed utilizing thin liquid barium, honey and nectar thick liqui d barium, barium thick applesauce, and barium coated cracker. COMPARISON: None. Total fluoroscopy time 1 minute 45 seconds. Total images: None. Real-time scanning provided for speech pathology. FINDINGS: The oral and pharyngeal phases show satisfactory initiation and propagation with all modalities teste d. Normal mastication is seen with solid modalities tested. There is no evidence of penetration or aspiration with any modality tested. No significant pharyngeal residue was appreciated. IMPRESSION: Normal deglutition study. Please refer to speech therapist notes for further details if necessary.
== END | disposition home or self-care (01) ==
LOC: RADFLMAIN 10:35
PROVIDERS: ATTEND Otolaryngology
DX: R13.10 Dysphagia, unspecified (principal)
CPT/HCPCS: 74230

== ENCOUNTER → 2021-02-26 | Outpatient (CLI) | payer MEDICAID ==
--- NOTE | 2021-03-01 10:41 | MM ---
Reason for exam: screening (asymptomatic). Last mammogram was performed 3 years and 1 month ago. History: Patient has history of other cancer at age 44 and is nulliparous. Physical Findings: A clinical breast exam by your physician is recommended on an annual basis and results should be correlated with mammographic findings. MG Screening Mammo w CAD Bilateral CC and MLO view(s) were taken. Prior study comparison: January 31, 2018, bilateral MG screening mammo w CAD. November 03, 2016, bilateral MG screening mammo w CAD. The breast tissue is heterogeneously dense. This may lower the sensitivity of mammography. There is no discrete abnormality. No significant changes when compared with prior studies. ASSESSMENT: Negative, BI-RAD 1 RECOMMENDATION: Routine screening mammogram of both breasts in 1 year.
== END | disposition home or self-care (01) ==
LOC: RADMAMWWP 10:33
PROVIDERS: ATTEND Family Medicine
DX: Z12.31 Encounter for screening mammogram for malignant neoplasm of breast (principal); Z85.89 Personal history of malignant neoplasm of other organs and systems
CPT/HCPCS: 77067

== ENCOUNTER 2021-08-06 08:09 | Day surgery (SDC) | payer MEDICAID ==
[2021-08-04 14:05] VITALS: BMI 32.3
[~2021-08-06 08:09] MED LIST changes: -ACETAMINOPHEN TAB 500 MG TAB PO ONE; -DEXAMETHASONE SOD PHOSPHATE 10 MG/ML 1 ML VIAL IV ONE; -HYDROmorphone 0.5 MG/0.5 ML SYRINGE IVP PRN; +LACTATED RINGERS 1,000 ML IV SCH; +LIDOCAINE 1% (10MG/ML) FOR IV START INTRADERMA PRN; -MELOXICAM 7.5 MG TAB PO ONE; -MIDAZOLAM 2 MG/2 ML VIAL IV PRN; -ONDANSETRON 4 MG/2 ML VIAL IVP ONE; -ROPIVACAINE 246.25 MG, EPINEPHrine 0.5 MG, KETOROLAC 30 MG, cloNIDine HCL/PF 80 MCG, WA... MISCELLANE ONE; -SCOPOLAMINE 1.5MG/72HR PATCH TRANSDERM ONE; -TRANEXAMIC ACID 1,000 MG in SODIUM CHLORIDE 0.9% 100 ML IVPB ONE; -fentaNYL (PF) 50 MCG/ML 2 ML AMP IVP PRN
[2021-08-06 08:34] VITALS: TEMP 97.7
[2021-08-06] MEDS ORDERED: PROPOFOL 10 MG/ML 20 ML VIAL IV ONE (09:14)
[2021-08-06] MEDS ORDERED: LIDOCAINE 1% INJ 10MG/ML (20 ML MDV) ONE (09:14)
--- NOTE | 2021-08-06 09:25 | P.PCN ---
Date of Procedure: 08/06/21 Procedure(s) Performed: BRIEF HISTORY: Patient is a 51-year-old, pleasant, white female scheduled for an upper endoscopy as a part of evaluation of intermittent dysphagia to solids for the last 2 months duration. She has history of oral CANCER DIAGNOSED IN 2014 FOR WHICH SHE UNDERWENT CHEMORADIATION THERAPY SHE ALSO HAS HISTORY OF GERD AND IS ON PRILOSEC 20 MG DAILY FOR 5 YEARS.. PROCEDURE PERFORMED: Esophagogastroduodenoscop biopsy and balloon dilation . PREOPERATIVE DIAGNOSIS: Intermittent dysphagia to solids. IV sedation per anesthesia. PROCEDURE: After informed consent was obtained, the patient was brought into the endoscopy unit. IV sedation was administered by Anesthesia under continuous monitoring. Initially the Olympus GIF-140 video endoscope was inserted into the mouth. Esophagus intubated without any difficulty. It was gradually advanced into the stomach and duodenum and carefully examined. The bulb and the second part of the duodenum appeared normal. The scope at this time was withdrawn to the stomach, adequately insufflated with air, and upon careful examination, mucosa of the antrum, body, cardia and the fundus appeared normal. The scope was then withdrawn into the esophagus. The GE junction was located at 36 cm from the incisors. Small hiatal hernia noted. There was a distal esophageal Schatzki's ring identified at the GE junction was dilated using 18-20 mm balloon in a sequential fashion for 30 seconds. Rest of the The esophagus appeared normal. Biopsies were done from the distal esophagus to rule out eosinophilic esophagitis. There were no erosions or ulcerations seen and the patient tolerated the procedure well. IMPRESSION: 1. Distal esophageal Schatzki's ring status post balloon dilation using 1518-20 mm TTS balloon as described above. 2. Small hiatal hernia. RECOMMENDATIONS: The findings of this examination were discussed with the patien t as well as a family.. She was advised to continue with Prilosec 20 mg daily and follow antireflux measures. Follow up in office office in 3 months
[2021-08-06 09:32] VITALS: PULSE 71; RESP 16
[2021-08-06 09:45] VITALS: BP 150/76
== END 2021-08-06 10:11 | disposition home or self-care (01) ==
LOC: ORWHC2ENDO 08:09
PROVIDERS: ATTEND Internal Medicine Gastroenterology
DX: K22.2 Esophageal obstruction (principal); K20.0 Eosinophilic esophagitis; K44.9 Diaphragmatic hernia without obstruction or gangrene; F32.A Depression, unspecified; Z79.1 Long term (current) use of non-steroidal anti-inflammatories (NSAID); Z79.899 Other long term (current) drug therapy; Z85.89 Personal history of malignant neoplasm of other organs and systems; Z92.21 Personal history of antineoplastic chemotherapy; Z92.3 Personal history of irradiation
CPT/HCPCS: 81025; 88305; 43239; 43249; J2001; J2704

== ENCOUNTER → 2022-01-12 | Outpatient (CLI) | payer MEDICAID ==
[~2022-01-12] MED LIST changes: +BEBTELOVIMAB (EUA) 175 MG/2 ML VIAL IV ONE; -LACTATED RINGERS 1,000 ML IV SCH; -LIDOCAINE 1% (10MG/ML) FOR IV START INTRADERMA PRN; +SODIUM CHLORIDE 0.9% 500 ML 500 ML in EMPTY BAG 1 BAG IV PRN
[2022-01-12 11:47] VITALS: RESP 16; TEMP 97.9
[2022-01-12 12:45] VITALS: BP 125/78; PULSE 66
== END ==
LOC: PROCWHC3 10:55
PROVIDERS: ATTEND Physician Assistant
DX: U07.1 COVID-19 (principal); E66.9 Obesity, unspecified; Z68.25 Body mass index [BMI] 25.0-25.9, adult; Z88.1 Allergy status to other antibiotic agents; Z88.0 Allergy status to penicillin; Z88.9 Allergy status to unspecified drugs, medicaments and biological substances; Z88.5 Allergy status to narcotic agent; Z87.891 Personal history of nicotine dependence
CPT/HCPCS: Q0222; M0222

== ENCOUNTER → 2022-06-03 | Outpatient (CLI) | payer MEDICAID ==
--- NOTE | 2022-06-03 11:28 | FL ---
EXAMINATION TYPE: FL barium swallow w video DATE OF EXAM: 06/03/2022 CLINICAL HISTORY: 52-year-old female R13.10, Dysphagia. TECHNIQUE: Deglutition study is performed utilizing thin liquid barium, barium thick pudding, and ba rium coated cracker. COMPARISON: None. Total fluoroscopy time: 2 minutes 18 seconds Total images: None. Real-time fluoroscopy support was provided to speech pathology. FINDINGS: The oral and pharyngeal phases show satisfactory initiation and propagation with all modalities teste d. Normal mastication is seen with solid modalities tested. There is no evidence of penetration or aspiration with any modality tested. No significant pharyngeal residue was appreciated. Additional imaging was performed in AP projection. We note delayed passage of solids from the mid and lower thoracic esophagus with episodes of intraesophageal reflux and slow intermittent passage. Pass age is promoted after a thin liquid wash. IMPRESSION: No penetration or aspiration. We note delayed passage of solids from the mid and lower thoracic esoph marlon with episodes of intraesophageal reflux and slow intermittent passage into the stomach. Passages that up after thin liquid wash. Unclear if this is secondary to a distal stricture or esophageal dys motility. The patient reports previous esophageal dilatation. Consider direct visualization to furthe r assess. Please refer to speech therapist notes for further details if necessary.
== END | disposition home or self-care (01) ==
LOC: RADFLMAIN 07:41
PROVIDERS: ATTEND Otolaryngology
DX: K21.9 Gastro-esophageal reflux disease without esophagitis (principal); R13.10 Dysphagia, unspecified
CPT/HCPCS: 74230

== ENCOUNTER → 2022-06-03 | Outpatient (CLI) | payer MEDICAID ==
--- NOTE | 2022-06-03 10:31 | CT ---
EXAMINATION TYPE: CT soft tissue neck wo/w con DATE OF EXAM: 06/03/2022 COMPARISON: Correlation modified barium swallow study same day HISTORY: 52-year-old female R13.10, Dysphagia. TECHNIQUE: Contiguous axial scanning of the soft tissues of the neck performed without and with IV Co ntrast, patient injected with 70ml mL of Isovue 300. Coronal/sagittal reconstructions performed. CT DLP: 1159 mGycm Automated exposure control for dose reduction was used. FINDINGS: Visualized intracranial structures, orbits and globes, and left mastoid air cells appear clear. Small amount of fluid inferior most right mastoid air cells. There is frothy layering fluid left maxillary sinus. Nasopharynx appears clear. Oropharynx appears clear. The epiglottis and prevertebral soft tissues are satisfactory. Glottic and subglottic structures as well as the tracheal column appear clear. Large caliber to the main right and left pulmonary arteries measuring up to 2.7 cm may reflect underl milagro pulmonary hypertension. The thyroid gland is satisfactory. Either very atrophic or surgically absent bilateral submandibular glands. Surgical clips are present along the floor the mouth on both sides and submandibular spaces. Partial resection change extends to the posterior right base of the tongue and right floor of the mouth. No cervical lymphadenopathy identified. Atrophic bilateral parotid glands. Bones: Mild degenerative disc disease at C5-C6 contributing to mild narrowing of the spinal canal. IMPRESSION: 1. POST SURGICAL CHANGE ALONG THE FLOOR OF THE MOUTH EXTENDING TO THE RIGHT BASE OF THE TONGUE AND FAULKNER BMANDIBULAR SPACE ON BOTH SIDES. THE BILATERAL SUBMANDIBULAR GLANDS ARE EITHER VERY ATROPHIC OR SURGI NATHAN ABSENT. THE BILATERAL PAROTID GLANDS ARE ALSO MILDLY ATROPHIC. 2. LAYERING FLUID LEFT MAXILLARY SINUS COULD REFLECT ACUTE SINUSITIS. 3. SMALL AMOUNT OF FLUID TRAPPED IN THE INFERIOR MOST RIGHT MASTOID AIR CELLS. CORRELATE FOR ANY MAST OID PAIN TO EXCLUDE MASTOIDITIS. 4. OTHERWISE, NO SPECIFIC ABNORMALITY ON CT SOFT TISSUE NECK. 5. POSSIBLE UNDERLYING PULMONARY ARTERIAL HYPERTENSION IN THE VISUALIZED UPPER CHEST.
== END | disposition home or self-care (01) ==
LOC: RADCTMAIN 07:42
PROVIDERS: ATTEND Otolaryngology
DX: K11.0 Atrophy of salivary gland (principal); R13.10 Dysphagia, unspecified; Z98.890 Other specified postprocedural states
CPT/HCPCS: 70492; Q9967

== ENCOUNTER 2023-02-10 06:16 | Day surgery (SDC) | payer MEDICAID ==
[2023-02-08 14:06] VITALS: BMI 31.6
[~2023-02-10 06:16] MED LIST changes: -BEBTELOVIMAB (EUA) 175 MG/2 ML VIAL IV ONE; +LACTATED RINGERS 1,000 ML IV SCH; +LIDOCAINE 1% (10MG/ML) FOR IV START INTRADERMA PRN; -SODIUM CHLORIDE 0.9% 500 ML 500 ML in EMPTY BAG 1 BAG IV PRN
[2023-02-10] MEDS ORDERED: ONDANSETRON 4 MG/2 ML VIAL IVP PRN (07:00)
[2023-02-10] MEDS ORDERED: LACTATED RINGERS 1,000 ML IV ONE (07:12)
[2023-02-10 07:27] VITALS: TEMP 97.4
[2023-02-10] MEDS ORDERED: LIDOCAINE 2% INJ 20 MG/ML (2 ML VIAL) ONE (07:39)
[2023-02-10] MEDS ORDERED: PROPOFOL 10 MG/ML 20 ML VIAL IV ONE (07:39)
--- NOTE | 2023-02-10 08:04 | P.PCN ---
Date of Procedure: 02/10/23 Procedure(s) Performed: Brief history: Patient is a pleasant 52-year-old white female scheduled for an elective upper endoscopy as well as colonoscopy as a part of evaluation of intermittent dysphagia to solids and screening for colon cancer Procedure performed: Esophagogastroduodenoscopy with biopsy and dilation Colonoscopy Preoperative diagnosis: Intermittent dysphagia to solids Screening for colon cancer Anesthesia: [facility] [place] Procedure: After informed consent was obtained from the patient was brought into the endoscopy unit and IV sedation was administered by anesthesia under continuous monitoring. Initially upper endoscopy was done. The Olympus GF 160 video endoscope was inserted inserted into the mouth and esophagus intubated without any difficulty and was gradually advanced into the stomach and duodenum and carefully examined. The bulb and second part of the duodenum appeared normal. The scope was then withdrawn into the stomach adequately insufflated with air and upon careful examination the antrum had mild gastritis and biopsies were done from this area. Mucosa of the body, cardia and fundus appeared normal. The scope was then withdrawn into the esophagus. Small hiatal hernia noted. The GE junction was located at 40 cm to the incisors. There was a distal esophageal Schatzki's ring identified that was dilated using 18-20 mm balloon in a sequential fashion for 60 seconds. The GE junction appeared regular with no erythema erosions or ulcerations. Rest of the esophagus appeared normal. Patient tolerated the procedure well. At this time the patient continued to remain sedation. Initial digital rectal examination was normal. Olympus CF 160 video colonoscope was then inserted into the rectum and gradually advanced to the cecum without any difficulty. Careful examination was performed as the scope was gradually being withdrawn. The prep was excellent. The cecum, ascending colon, transverse colon, descending colon, sigmoid colon and rectum appeared normal. Retroflexion was performed in the rectum and no lesions were noted. Patient tolerated the procedure well. Impression: 1. Upper endoscopy revealed small hiatal hernia, esophageal Schatzki's ring status post balloon dilation using 8 and 20 mm TTS balloon and mild gastritis 2. Colonoscopy was within normal limits with no evidence of colorectal neoplasia. Recommendations: Findings of this examination were discussed with the patient as well as her family. she was advised to remain on clear liquids for lunch today. Continue with omeprazole 20 mg daily and follow antireflux measures. Recommend a repeat screening colonoscopy in 10 years.
[2023-02-10 08:33] VITALS: BP 118/77; PULSE 79; RESP 20
== END 2023-02-10 09:00 ==
LOC: ORWHC2ENDO 06:16
PROVIDERS: ATTEND Internal Medicine Gastroenterology
DX: Z12.11 Encounter for screening for malignant neoplasm of colon (principal); K29.50 Unspecified chronic gastritis without bleeding; K22.2 Esophageal obstruction; K44.9 Diaphragmatic hernia without obstruction or gangrene; I25.10 Atherosclerotic heart disease of native coronary artery without angina pectoris; Z88.1 Allergy status to other antibiotic agents; Z79.899 Other long term (current) drug therapy; Z85.819 Personal history of malignant neoplasm of unspecified site of lip, oral cavity, and pharynx
CPT/HCPCS: 81025; 88305; 88342; 45378; 43239; 43249; J2704; J2001; C1726

== ENCOUNTER → 2023-03-28 | Outpatient (CLI) | payer MEDICAID ==
--- NOTE | 2023-03-28 11:41 | CA ---
Exercise Stress Test Report Name: Rosey Lyon Exam Date: 03/28/2023 09:03 Exam Location: [place] Stress Ht (in): 63 Wt (lb): 203 BSA: 1.95 Ordering Phys: Bk Bragg DO Referring Phys: BK BRAGG,, Technologist: GANESH MAI Age: 52 Gender: F : 1970 Procedure CPT: Indications: I45.4 NONSPECIFIC INTRAVENTRICULAR BLOCK ICD-10 Codes: Patient History: N/A Medications: OMEPRAZOLE Meds past 24 hrs: Pretest Chest Pain: STRESS TEST Abel Protocol Exercise Duration (min:sec): 04:[address] Depressions (mm): Angina Score: Dan Score: Resting HR (bpm): 96 Peak HR (bpm): 127 Resting BP (mmHg): 143 / 90 Peak BP (mmHg): 153 / 72 MPHR: 170 Target HR: 145 % MPHR: 75 METS: 5.4 Total Dose: Peak Dose: Atropine: Double Product: 32290 BP Response: Stress Termination: Patient request Stress Symptoms: No chest pain or symptoms Stress Summary: The patient's target heart rate was not achieved ECG ANALYSIS Resting ECG: Stress ECG: CONCLUSIONS Baseline EKG revealed a normal sinus rhythm without significant ST-T changes. There was some baseline artifact. Patient walked for 4 minutes 14 seconds. He developed knee discomfort therefore stress test was stopped. He did not have angina. Maximal heart rate was 1 27 bpm this is well below 85% of predicted maximal. This is therefore an inconclusive stress test. No significant EKG changes are noted. Limited exercise capacity stress test. Because of knee discomfort suboptimal heart rate and therefore inconclusive stress test. Consider perform a pharmacological stress test in this patient Dr. Papito Welch MD (Electronically Signed) Final Date: 28 March 2023 11:40
== END | disposition home or self-care (01) ==
LOC: RADNMMAIN 07:52
PROVIDERS: ATTEND Family Medicine
DX: I45.4 Nonspecific intraventricular block (principal)
CPT/HCPCS: 93017

== ENCOUNTER → 2023-03-30 | Outpatient (CLI) | payer MEDICAID ==
--- NOTE | 2023-03-31 11:16 | CA ---
Transthoracic Echo Report Name: Rosey Lyon Age: 52 Gender: F : 1970 Exam Date: 03/30/2023 13:17 Exam Location: [place] Echo Ht (in): 63 Wt (lb): 203 Ordering Physician: Bijan Wynne DO Attending/Referring Phys: Gas Cutter Nataliia Ferrer RDCS Procedure CPT: Indications: I45.4 NONSPECIFIC INTRAVENTRICULAR BLOCK Cardiac Hx: Technical Quality: Fair Contrast 1: Total Dose (mL): Contrast 2: Total Dose (mL): MEASUREMENTS (Male / Female) Normal Values 2D ECHO LV Diastolic Diameter PLAX 4.7 cm 4.2 - 5.9 / 3.9 - 5.3 cm LV Systolic Diameter PLAX 2.8 cm IVS Diastolic Thickness 1.1 cm 0.6 - 1.0 / 0.6 - 0.9 cm LVPW Diastolic Thickness 1.1 cm 0.6 - 1.0 / 0.6 - 0.9 cm LV Relative Wall Thickness 0.5 RV Internal Dim ED PLAX 3.8 cm LA Volume 59.4 cm??? 18 - 58 / 22 - 52 cm??? LA Volume Index 28.8 cm???/m??? 16 - 28 cm???/m??? M-MODE Aortic Root Diameter MM 3.2 cm LA Systolic Diameter MM 4.0 cm LA Ao Ratio MM 1.3 AV Cusp Separation MM 2.2 cm DOPPLER AV Peak Velocity 148.4 cm/s AV Peak Gradient 8.8 mmHg AV Mean Velocity 111.0 cm/s AV Mean Gradient 5.3 mmHg AV Velocity Time Integral 31.3 cm AI Peak Velocity 417.8 cm/s AI Peak Gradient 69.8 mmHg AI Pressure Half Time 407.7 ms LVOT Peak Velocity 116.6 cm/s LVOT Peak Gradient 5.4 mmHg LVOT Velocity Time Integral 25.7 cm MV Area PHT 3.1 cm??? Mitral E Point Velocity 50.0 cm/s Mitral A Point Velocity 58.9 cm/s Mitral E to A Ratio 0.8 MV Deceleration Time 243.3 ms MV E' Velocity 5.2 cm/s Mitral E to MV E' Ratio 9.7 TR Peak Velocity 243.6 cm/s TR Peak Gradient 23.7 mmHg Right Ventricular Systolic Press 28.4 mmHg FINDINGS Left Ventricle Mildly increased left ventricular wall thickness. Left ventricular cavity size normal. Normal left ventricular systolic function with no obvious regional wall motion abnormalities. Left ventricular ejection fraction is estimated at 55-60 %. Right Ventricle Mild right ventricular dilatation. Right ventricular systolic pressure within normal limits. Right Atrium Normal right atrial size. Left Atrium Mildly increased left atrial volume. Mildly increased left atrial area. Mitral Valve Structurally normal mitral valve. Mild mitral annular calcification. Mild mitral regurgitation. Aortic Valve Trileaflet aortic valve. No aortic stenosis. Mild aortic regurgitation. Tricuspid Valve Structurally normal tricuspid valve. Mild tricuspid regurgitation. Pulmonic Valve Trace pulmonic regurgitation. Pericardium No pericardial effusion. Aorta Normal size aortic root and proximal ascending aorta. CONCLUSIONS Normal LV size and systolic function. There is mild mitral tricuspid and aortic insufficiency without significant pulmonary hypertension. No pericardial effusion Previewed by: Dr. Papito Welch MD (Electronically Signed) Final Date: 31 March 2023 11:15
== END | disposition home or self-care (01) ==
LOC: RADECHMAIN 13:11
PROVIDERS: ATTEND Family Medicine
DX: I45.4 Nonspecific intraventricular block (principal); I36.1 Nonrheumatic tricuspid (valve) insufficiency; I35.1 Nonrheumatic aortic (valve) insufficiency; I34.0 Nonrheumatic mitral (valve) insufficiency
CPT/HCPCS: 93306

== ENCOUNTER → 2023-04-24 | Outpatient (CLI) | payer MEDICAID ==
[~2023-04-24] MED LIST changes: -LACTATED RINGERS 1,000 ML IV SCH; -LIDOCAINE 1% (10MG/ML) FOR IV START INTRADERMA PRN; +REGADENOSON 0.4 MG/5 ML SYRINGE IV PRN
--- NOTE | 2023-04-24 13:07 | NM ---
EXAMINATION TYPE: NM stress lexiscan cardiolite DATE OF EXAM: 04/24/2023 COMPARISON: NONE CLINICAL INDICATION: Female, 52 years old with history of Z01.89 ENCOUNTER FOR SPECIAL EXAMINATIONS; TECHNIQUE: After the intravenous administration of 9.9 mCi Tc 99m Sestamibi - Cardiolite resting SPE CT images acquired 45 minutes post injection. The patient received 0.4mg Lexiscan, 25.4 mCi Tc 99m Sestamibi - Stress images obtained [address] injection FINDINGS: Review of stress and rest SPECT images demonstrates artifact which limits assessment of the inferior wall. Remaining portion of the myocardium demonstrates no evidence of stress-induced versus ischemia. No distinct perfusion abnormality. Gated analysis shows normal wall motion with an estimated left v entricular ejection fraction of 62 %. IMPRESSION: No scintigraphic evidence for reversible ischemia. See above regarding limitations of the exam.
--- NOTE | 2023-04-25 11:41 | CA ---
Lexiscan Nuclear Stress Test Report Name: Rosey Lyon Exam Date: 04/24/2023 10:27 Exam Location: [place] Stress Ht (in): 63 Wt (lb): 203 BSA: 1.95 Ordering Phys: Bijan Wynne DO Referring Phys: Bijan Wynne DO Technologist: Jc Marshall Age: 52 Gender: F : 1970 Procedure CPT: Indications: Z01.89 ENCOUNTER FOR SPECIAL EXAMINATIONS ICD-10 Codes: Patient History: Medications: OMEPERAZOLE, FLUOXETINE Meds past 24 hrs: Pretest Chest Pain: STRESS TEST Lexiscan Protocol Exercise Duration (min:sec): 01:[address] Depressions (mm): Angina Score: Dan Score: Resting HR (bpm): 81 Peak HR (bpm): 100 Resting BP (mmHg): 134 / 90 Peak BP (mmHg): 140 / 84 MPHR: 170 Target HR: 145 % MPHR: 59 METS: 1.0 Total Dose: Peak Dose: Atropine: Double Product: 30128 BP Response: Stress Termination: INFUSION COMPLETE Stress Symptoms: NO SYMPTOMS Stress Summary: ECG ANALYSIS Resting ECG: Normal sinus rhythm, heart rate 83 bpm Stress ECG: No significant ST-T wave changes diagnostic for ischemia by ST segment analysis. No sustained arrhythmias ectopic beats CONCLUSIONS Nonischemic ECG response to Lexiscan infusion. Normal clinical response to Lexiscan infusion Overall normal ECG portion of the nuclear stress test Please refer to the nuclear imaging portion of the study for complete interpretation of this study Dr Nato Salinas (Electronically Signed) Final Date: 25 April 2023 11:40
== END | disposition home or self-care (01) ==
LOC: RADNMMAIN 07:55
PROVIDERS: ATTEND Family Medicine
DX: Z01.812 Encounter for preprocedural laboratory examination (principal)
CPT/HCPCS: 93017; 78452; A9500; J2785

== ENCOUNTER 2023-05-18 08:04 | Day surgery (SDC) | payer MEDICAID ==
--- NOTE | 2023-05-17 20:53 | HP ---
HISTORY AND PHYSICAL DATE OF SURGERY: 05/18/2023. HISTORY OF PRESENT ILLNESS: Rosey Lyon is a 53-year-old patient seen with symptomatic right knee osteoarthritis. We discussed options for treatment. She elected to proceed with right total knee arthroplasty. Consent regarding procedure was obtained. Medical clearance was provided by Dr. Wynne. PAST MEDICAL HISTORY: Gastroesophageal reflux disease. PAST SURGICAL HISTORY: Left total knee arthroplasty, throat surgery. DAILY MEDICATIONS: 1. Ibuprofen. 2. Omeprazole. 3. Prozac. ALLERGIES: None. SOCIAL HISTORY: She denies tobacco use. PHYSICAL EVALUATION OF THE RIGHT KNEE: Range of motion is -1/2 to 115 degrees. Mild effusion. Tenderness, medial joint line. Crepitus, medial patellofemoral compartments with range of motion. Pain with patellofemoral compression. Ligaments stable. Hip rotation without pain. Distal neurovascular exam is intact. RADIOGRAPHS: Right knee radiographs revealed severe medial and moderate patellofemoral compartment osteoarthritis. IMPRESSION: 1. Right knee osteoarthritis. 2. Gastroesophageal reflux disease. PLAN: Right total knee arthroplasty. MMODL / IJN: [id number] /
[~2023-05-18 08:04] MED LIST changes: +ACETAMINOPHEN TAB 500 MG TAB PO PRN; +DEXAMETHASONE SOD PHOSPHATE 4 MG/ML 1 ML VIAL IV ONE; +HYDROmorphone 0.5 MG/0.5 ML SYRINGE IVP PRN; +MELOXICAM 7.5 MG TAB PO PRN; +MIDAZOLAM 2 MG/2 ML VIAL IV PRN; +ONDANSETRON 4 MG/2 ML VIAL IVP ONE; -REGADENOSON 0.4 MG/5 ML SYRINGE IV PRN; +SCOPOLAMINE 1 MG/72 HR PATCH TRANSDERM ONE; +TRANEXAMIC 1,000 MG/100ML-NACL 1,000 MG in SALINE 1 100ML.BAG IVPB PRN; +VANCOMYCIN 1,250 MG in SODIUM CHLORIDE 0.9% 250 ML IVPB PRN
[2023-05-18] MEDS ORDERED: LACTATED RINGERS 1,000 ML IV ONE ×2 (08:46→12:42)
--- NOTE | 2023-05-18 10:41 | P.ANPRN ---
Procedure Note - Anesthesia - Nerve Block Performed Right Adductor Canal Infusion Time Out Performed: Yes Date of Procedure: 05/18/23 Procedure Start Time: 09:32 Procedure Stop Time: 09:39 Location of Patient: PreOp Indication: Acute Post-Operative Pain, Analgesia, Requested by Surgeon Sedation Type: Sedate with meaningful contact maintained Preparation: Sterile Prep Position: Supine Needle Types: On-Q Needle Gauge: 21 Ultrasound used to visualize needle placement: Yes Ultrasound used to observe medication spread: Yes Injectate: 0.5% Ropivacaine (see comment for volume) (Ropivacaine 10 ml) Blood Aspirated: No Pain Paresthesia on Injection Noted: No Resistance on Injection: Normal Image Stored and Saved: Yes Events: Uneventful and Well Tolerated
--- NOTE | 2023-05-18 10:43 | P.ANPRN ---
Procedure Note - Anesthesia - Nerve Block Performed Right iPack Single Time Out Performed: Yes Date of Procedure: 05/18/23 Procedure Start Time: 09:40 Procedure Stop Time: :45 Location of Patient: PreOp Indication: Acute Post-Operative Pain, Analgesia, Requested by Surgeon Sedation Type: Sedate with meaningful contact maintained Preparation: Sterile Prep Position: Left Lateral Needle Types: Pajunk Needle Gauge: 21 Ultrasound used to visualize needle placement: Yes Ultrasound used to observe medication spread: Yes Injectate: 0.5% Ropivacaine (see comment for volume) ([id number] + NS10 ml) Blood Aspirated: No Pain Paresthesia on Injection Noted: No Resistance on Injection: Normal Image Stored and Saved: Yes Events: Uneventful and Well Tolerated
[2023-05-18] MEDS ORDERED: ROPIVACAINE 1,100 MG, SODIUM CHLORIDE 0.9% 500 ML 330 ML, EMPTY PAIN BALL 1 EACH MISCELLANE PRN ×2 (10:44)
[2023-05-18] MEDS ORDERED: ROPIVACAINE 5 MG/ML 30 ML VIAL ONE (11:03)
[2023-05-18] MEDS ORDERED: LIDOCAINE 1% INJ 10MG/ML (20 ML MDV) ONE (11:03)
[2023-05-18] MEDS ORDERED: MIDAZOLAM 2 MG/2 ML VIAL ONE (11:03)
[2023-05-18] MEDS ORDERED: PROPOFOL 10 MG/ML 20 ML VIAL IV ONE (11:03)
[2023-05-18] MEDS ORDERED: SODIUM CHLORIDE 0.9% (PF) 10 ML VIAL ONE (11:03)
--- NOTE | 2023-05-18 11:38 | P.ANPRN ---
Procedure Note - Anesthesia - Epidural/Spinal Spinal Time Out Performed: Yes Date of Procedure: 05/18/23 Procedure Start Time: 11:15 Location of Patient: OR Indication: Acute Post-Operative Pain, Analgesia, Requested by Surgeon Sedation Type: Sedate with meaningful contact maintained Preparation: Sterile Prep Position: Sitting Catheter: None Needle Guage: 22 Injectate: 12.5 mg Bupivacaine- intrathecally. Blood Aspirated: No Pain Paresthesia on Injection Noted: No Events: Uneventful and Well Tolerated
[2023-05-18] MEDS ORDERED: NALOXONE 0.4 MG/ML 1 ML VIAL IV PRN (12:52)
[2023-05-18] MEDS ORDERED: HYDROcodone/APAP 5-325MG 1 EACH TAB PO PRN (12:52)
[2023-05-18] MEDS ORDERED: HYDROmorphone 0.5 MG/0.5 ML SYRINGE IVP PRN ×2 (12:52)
[2023-05-18] MEDS ORDERED: ONDANSETRON 4 MG/2 ML VIAL IVP PRN (12:52)
--- NOTE | 2023-05-18 12:52 | P.OP ---
Date of Procedure: 05/18/23 Preoperative Diagnosis: Right knee osteoarthritis Postoperative Diagnosis: Right knee osteoarthritis Procedure(s) Performed: Right total knee arthroplasty Implants: 1. Depuy attune size 6 narrow right cruciate retaining cemented femur 2. Depuy attune size 5 fixed bearing cemented tibial baseplate 3. Depuy attune size 6 fixed bearing cruciate retaining 10 mm polyethylene tibial insert 4. Depuy attune 38 mm all polyethylene cemented patella Anesthesia: regional (Adductor canal catheter, Ipack block), spinal Surgeon: Sam Medley Director Appointment #1: [facility] Estimated Blood Loss (ml): 65 Pathology: none sent Condition: stable Disposition: PACU Indications for Procedure: 53-year-old patient who was seen with symptomatic right knee osteoarthritis. After treatment options were discussed, she elected to proceed with total knee arthroplasty. Operative Findings: See description of procedure Description of Procedure: Patient was taken to the operative suite after having an adductor canal catheter placed by the department of anesthesia. Patient underwent a spinal anesthetic by the department of anesthesia. Patient was given preoperative IV intake antibiotics and TXA. A well-padded tourniquet was placed about the right lower extremity. The lower extremity was then prepped and draped in the normal sterile orthopedic fashion. The extremity was elevated, a tourniquet was insufflated to 300. A standard anterior incision was made sharply through skin. Dissection was taken down through the subcutaneous soft tissues down to the extensor mechanism. A medial arthrotomy was performed, patella was everted and knee was flexed. There was advanced osteoarthritis noted. I introduced my distal intramedullary femoral drill. I then introduced the distal femoral cutting jig. Ryder SHEIKH secured the cutting jig with 2 pins. I held retractors in position while Ryder SHEIKH performed the distal femoral resection through the guide area we now removed her distal femoral cutting guide. We now placed our 4-in-1 femoral cutting block and positioned and it was secured with 2 pins by Ryder SHEIKH while I held the block in position. The distal femoral finishing was now completed. A proximal tibial cutting guide was positioned. I held the guide in the appropriate position with both hands well Ryder SHEIKH inserted stabilizing pins into the guide. Proximal tibial cut was made. We now placed a trial femoral component into position, along with an appropriate size tibial tray and insert. We now took the knee through range of motion and had full extension good flexion and good overall soft tissue balance noted. The patella was everted and stabilized with 2 towel clips held by Ryder SHEIKH while I performed a flush with patellar quad tendon utilizing a fresh sawblade. We templated the patella, appropriate drill holes were made. An appropriate trial patella was positioned, knee was taken through full range of motion with the patella tracking very nicely. The trial patella was removed. Drill holes were made through the femoral component. All trial components were removed after marking off the appropriate rotation of the tibia. Retractors were now positioned along the proximal tibia. An appropriate keel punch was made with the appropriate size tibial guide by myself on Ryder SHEIKH assisted by holding retractors. At this point appropriate size implants were chosen and opened. The joint was irrigated copiously with pulse lavage mechanical irrigation. The wound was irrigated with pulse lavage mechanical irrigation. We mixed antibiotic methylmethacrylate. We placed the knee into flexion. We placed multiple retractors assisted by Ryder SHEIKH to expose the proximal tibia. Once the methyl methacrylate was ready, the tibial component was cemented into place removing any excess methylmethacrylate form by both myself and Ryder SHEIKH. The femoral component was cemented into place removing the removing any excess methylmethacrylate performed by both myself and Ryder SHEIKH. We then inserted the appropriate size polyethylene tibial insert. We made sure that it was locked into position. We took the knee into full extension, and then back in a flexion making sure we had removed any excess methylmethacrylate. The patellar component was then cemented down and secured with clamp. Excess methylmethacrylate removed. We kept the knee in full extension, patellar clamp in position until methylmethacrylate had hardened. Once it had hardened the patellar clamp was removed. The knee was taken through full range of motion. The patella tracked nicely. There was good soft tissue balancing. The tourniquet was now released. Additional hemostasis was achieved via electrocautery. A second gram of TXA was given. The wound again was irrigated with pulse lavage mechanical irrigation. The extensor mechanism was repaired with Ethibond suture. We checked the repair with range of motion and i t was stable. The subcutaneous soft tissues were repaired with Vicryl in layers. The skin was approximated with pernio/Dermabond. Sterile dressings were applied followed by loose web roll and Damion bandage. The patient was transferred to a bed, and taken to recovery in stable and satisfactory condition. Ryder SHEIKH assisted with this complex procedure.
[2023-05-18] MEDS: LACTATED RINGERS 1,000 ML IV SCH ×2 (14:53→14:55)
[2023-05-18] MEDS: HYDROmorphone 1 MG/ML 1 ML SYRINGE IVP PRN ×2 (14:54→22:27)
--- NOTE | 2023-05-18 15:01 | XR ---
EXAMINATION TYPE: XR knee limited RT DATE OF EXAM: 05/18/2023 2:03 PM CLINICAL INDICATION:Female, 53 years old with history of Evaluation for Postop abnormality and alignm ent; [facility] COMPARISON: None. TECHNIQUE: XR knee limited RT; examined in Frontal, lateral and oblique projections. FINDINGS: Status post total knee arthroplasty changes with hardware in appropriate alignment and in tact. No evidence of fracture. Subcutaneous lucencies and lucencies within the joint consistent with surgical changes. IMPRESSION: Status post total knee arthroplasty changes with hardware intact and appropriate alignment. No fractu res identified.
[2023-05-18] MEDS: HYDROcodone/APAP 7.5-325MG 1 EACH TAB PO PRN (17:17)
[2023-05-18] MEDS ORDERED: NORTRIPTYLINE 25 MG CAP PO SCH ×2 (17:30→21:00)
[2023-05-18] MEDS ORDERED: SENNOSIDES-DOCUSATE SODIUM 1 EACH TAB PO SCH (21:00)
--- NOTE | 2023-05-19 00:13 | P.CONS ---
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 Patient tolerated the procedure very well. Postoperatively blood pressure went up to 154 over 97 mmHg pulse 88 and pulse ox 98% on room air. Otherwise patient denies any complaints of chest pain or shortness of breath. No nausea or vomiting. No cough or sputum production. Patient is complaining of right knee pain which is fairly controlled with medications. No fever no chills. Denies any recent illnesses. Laboratory data is not available at this time. Review of Systems Constitutional: Patient denies any fever or chills . no Generalized weakness. Abdomen: Patient denied any nausea or vomiting or abd. pain Cardiovascular: Patient denies any chest pain or short of breath no palpitations. Respiratory: patient denied any cough . no sputum production. No shortness of breath Neurologic: Patient denied any numbness or tingling or headache. Musculoskeletal: Patient denies any complaints of joint swelling or deformity. Right knee pain Skin: Negative Psychiatric: Negative Endocrine: No heat or cold intolerance. No recent weight gain. Genitourinary: No dysuria or hematuria. All other 14 point ROS negative except the above Past Medical History Past Medical History: Cancer, GERD/Reflux, Osteoarthritis (OA) Additional Past Medical History / Comment(s): mouth and neck cancer recieved chemo and radiaton 6 years ago. "food gets stuck in throat" occasionally. cognitive disability-Mom is POA, brain injury as an History of Any Multi-Drug Resistant Organisms: None Reported Past Surgical History: Joint Replacement Additional Past Surgical History / Comment(s): reconstructive surgery from cancer to mouth and neck,. EGD. LT TKA 2019 Past Anesthesia/Blood Transfusion Reactions: No Reported Reaction Past Psychological History: Depression Additional Psychological History / Comment(s): Cognitive impairment Smoking Status: Never smoker Past Alcohol Use History: Occasional Additional Past Alcohol Use History / Comment(s): "might have 1 beer/week" Past Drug Use History: None Reported - Past Family History Father Family Medical History: Cancer Additional Family Medical History / Comment(s): throat cancer Medications and Allergies Home Medications Medication Instructions Recorded Confirmed Type FLUoxetine HCL [PROzac] 60 mg PO QAM 02/21/20 05/18/23 History Ibuprofen [Motrin] 800 mg PO TID PRN 07/28/20 05/18/23 History Omeprazole 40 mg PO QAM 07/28/20 05/18/23 History Nortriptyline HCl [Pamelor] 50 mg PO AC-SUPPER 02/08/23 05/18/23 History Nortriptyline HCl [Pamelor] 50 mg PO HS 05/12/23 05/18/23 History Allergies Allergy/AdvReac Type Severity Reaction Status Date / Time bacitracin Allergy Rash/Hives Verified 05/18/23 09:03 [From Neosporin ([id number])] neomycin Allergy Rash/Hives Verified 05/18/23 09:03 [From Neosporin ([id number])] polymyxin B Allergy Rash/Hives Verified 05/18/23 09:03 [From Neosporin ([id number])] Physical Exam Vitals: Vital Signs Temp Pulse Pulse Resp BP BP Pulse Ox 05/18/23 19:25 98.5 F 89 18 119/84 99 05/18/23 16:32 85 137/90 98 05/18/23 16:18 81 132/88 99 05/18/23 16:03 83 129/85 99 05/18/23 15:47 81 136/91 100 05/18/23 15:33 88 134/84 98 05/18/23 15:17 88 154/97 98 05/18/23 15:04 89 139/102 97 05/18/23 14:47 76 133/92 99 05/18/23 14:35 97.5 F L 77 18 141/87 100 05/18/23 13:57 74 17 138/86 100 05/18/23 13:42 71 16 136/83 100 05/18/23 13:27 68 16 132/83 100 05/18/23 13:12 70 16 119/75 97 05/18/23 10:20 72 16 146/80 100 05/18/23 08:42 97.1 F L 90 16 147/78 100 Intake and Output 05/18/23 05/18/23 05/18/23 06:59 14:59 22:59 Intake Total 1450 500 Output Total 65 Balance 1385 500 Intake: IV 1450 Intake, IV Titration 500 Amount Lactated Ringers 1,000 ml 500 @ 100 mls/hr IV .Q10H LYLE Rx#:[id number] Output: Estimated Blood Loss 65 Other: # Voids 1 Weight 86.9 kg 86.9 kg PHYSICAL EXAMINATION: Patient is lying in the bed comfortably, no acute distress, awake alert and oriented.. HEENT: Normocephalic. Neck is supple. Pupils reactive. Nostrils clear. Oral cavity is moist. Neck reveals no JVD, carotid bruits, or thyromegaly. CHEST EXAMINATION: Trachea is central. Symmetrical expansion. Lung hough clear to auscultation and percussion. CARDIAC: Normal S1, S2 with no gallops. No murmurs ABDOMEN: Soft. Bowel sounds present. Nontender. No organomegaly. No abdominal bruits. Extremities: reveal no edema. No clubbing or cyanosis Neurologically awake, alert, oriented x2-3 with well-coordinated movements. No focal deficits noted. Mild cognitive impairment. Skin: No rash or skin lesions. Psychiatric: Coperative. Nonsuicidal, Musculoskeletal: Minimal swelling at the right knee surgical site. Surgical site is bandaged. Pulses palpable. Decreased range of motion due to pain. Assessment and Plan Assessment: Status post right total knee arthroplasty postoperative day 0 Elevated blood pressure. Improved now likely due to pain GERD Osteoarthritis History of mouth and neck cancer status post chemo and radiation 6 years ago Cognitive impairmentmom is POA Brain injury as an infant Depression DVT prophylaxis patient is on Lovenox subcu GI prophylaxis patient is on PPI Plan: Patient will be continued on current pain management, bowel regimen. Encourage incentive spirometry. Patient is currently on Ringer's lactate at 100 cc/h. Continue GI and DVT prophylaxis. Encourage incentive spirometry. PT OT. Follow-up CBC and BMP tomorrow. Further recommendations based on the clinical course. Thank you for your consult.
[2023-05-19] MEDS: LACTATED RINGERS 1,000 ML IV SCH ×3 (00:14→07:37)
[2023-05-19] MEDS: HYDROmorphone 1 MG/ML 1 ML SYRINGE IVP PRN (05:40)
[2023-05-19] MEDS ORDERED: PANTOPRAZOLE 40 MG TABLET PO SCH (07:30)
[2023-05-19 08:45] LABS: Basophils # (A) 0.04 X 10*3/uL (0.00-0.10); Basophils % (A) 0.7 %; Eosinophils # (A) 0.04 X 10*3/uL (0.04-0.35); Eosinophils % (A) 0.7 %; HCT 31.6 % (37.2-50.0); Lymphocytes # (A) 1.38 X 10*3/uL (0.90-5.00); Lymphocytes % (A) 23.9 %; MCHC 31.6 g/dL (32.0-37.0); MCV 91.6 FL (80.0-97.0); Mean Platelet Volume 9.8 FL (9.5-12.2); Monocytes # (A) 0.66 X 10*3/uL (0.20-1.00); Monocytes % (A) 11.4 %; NRBC Per 100 WBC 0 X 10*3/uL (0.00-0.01); Neutrophils # (A) 3.65 X 10*3/uL (1.80-7.70); Neutrophils % (A) 63.1 %; Platelet Count 266 X 10*3/uL (140-440); RBC 3.45 X 10*6/uL (4.10-5.60); RDW 13.4 % (11.5-14.5); WBC 5.78 X 10*3/uL (4.50-10.00)
[2023-05-19 08:50] LABS: BUN/Creat Ratio 16.43 Ratio (12.00-20.00); Blood Urea Nitrogen 11.5 mg/dL (9.0-27.0); Calcium 9.4 mg/dL (8.7-10.3); Carbon Dioxide 26.1 mmol/L (21.6-31.8); Chloride 102 mmol/L (96-109); Glucose 111 mg/dL (70-110); Potassium 4.3 mmol/L (3.5-5.5); Sodium 135 mmol/L (135-145)
[2023-05-19] MEDS ORDERED: ENOXAPARIN 30 MG/0.3 ML SYRINGE SQ SCH (09:00)
[2023-05-19] MEDS ORDERED: FLUoxetine HCL 20 MG CAP PO SCH (09:00)
[2023-05-19] MEDS ORDERED: MELOXICAM 7.5 MG TAB PO SCH (09:00)
--- NOTE | 2023-05-19 11:15 | P.PN ---
Progress Note - Text Progress Note Date: 05/19/23 Postoperative day # 1 status post total knee arthroplasty, on adductor canal perineural catheter placed for postoperative analgesia. Ropivacaine 0.2% 8 mL per hour through ON-Q pump continuous infusion. Pain is well controlled. On visual analog scale 3/10 Patient is taking PRN oral pain medications. Catheter site: Looks Ok. There is no erythema or tenderness. Continue with the current pain management plan and will follow.
[2023-05-19] MEDS ORDERED: MULTIVITAMINS, THERA 1 EACH TAB PO SCH (12:00)
[2023-05-19] MEDS: HYDROcodone/APAP 7.5-325MG 1 EACH TAB PO PRN (13:25)
[2023-05-19 13:58] VITALS: BP 97/66; PULSE 84; RESP 17; TEMP 97.8
--- NOTE | 2023-05-19 14:02 | P.DS ---
Providers Date of admission: 05/18/2023 Expected date of discharge: 05/19/23 Attending physician: Sam Medley Consults: 05/18/23 12:52 Consult Physician Routine Consulting Provider: Ivonne Lopez Consult Reason/Comments: Medical management Do you want consulting provider notified?: Yes Primary care physician: Bijan Ricci [facility] Course: Date of admission: 05/18/2023 Date of discharge: 05/19/2023 Admission diagnosis: Right Knee osteoarthritis Discharge diagnosis: same Attending physician: Dr. Medley Surgical procedures: Total knee arthroplasty Brief history: Patient is a 53-year-old female with a history of progressive primary right knee osteoarthritis. At this point patient has failed conservative treatment measures and has opted to proceed with a elective right total knee arthroplasty. Hospital course: Details of patient's surgery can be found in operative report. Patient tolerated the procedure well and was subsequently transported to orthopedic floor. Patient's orthopeidc and medical care was provided daily. Patient had daily laboratory tests performed for evaluation of overall blood counts. Patient had daily physical therapy to include strengthening range of motion as well as education with walker ambulation. Patient was treated with Lovenox for their postoperative DVT prophylaxis during their inpatient stay. Patient was noted to have a relatively uneventful postoperative course. Patient reported satisfactory pain control with oral pain medications by postoperative day 1. Patient showed satisfactory progress with physical therapy. Patient moved steadily through the program and had no difficulty meeting the goals by postoperative day 1. Given patient's otherwise satisfactory course and having met physical therapy goals, plan is to discharge patient home on postoperative day 1. Discharge condition/disposition: Patient will be discharged home with health services in stable condition. Discharge medications: Instructions are given on resumption of patient's normal daily medications per primary care recommendation, in addition patient will be prescribed [place]; senna; aspirin 81 mg twice a day 30 days. Discharge instructions: 1. Wound care and infection precautions, keep incision dry and covered while showering, no lotions, creams, moisturizers. No soaking, tubs, pools, hottubs. Do not scrub over the incision. 2. Weight-bear as tolerated with walker / cane until follow-up. 3. Ice and elevate when necessary. Do not exceed 20 minutes per hour with ice pack. 4. Utilize compression sleeve until seen at first follow up appointment. 5. Visiting nursing care. 6. Home physical therapy including home CPM. 7. Pain meds and anticoagulants per prescription. 8. Pain medication has potential to cause constipation. Increase oral fluid and fiber intake. Contact primary care provider if you have not had a bowel movement within 48 hours after discharge 9. No anti-inflammatory medication until discussed at first post operative visit, this including Motrin, Aleve, Mobic, Diclofenac. 10. Follow up in office at 2 weeks postop with Ryder Branch PA-C / Carlos Evangelista PA-C 11. Follow up with your primary care doctor 7-10 days after discharge. 12. Contact [facility] with any questions, . Assessment: Right knee osteoarthritis Procedures: Right total knee arthroplasty Patient Condition at Discharge: Good Plan - Discharge Summary Discharge Rx Participant: Yes New Discharge Prescriptions: New Aspirin [Adult Low Dose Aspirin EC] 81 mg PO BID #60 tab HYDROcodone/APAP 7.5-325MG [[place] 7.5] 1 - 2 each PO Q6HR PRN #36 tab PRN Reason: Pain Sennosides/Docusate Sodium [Senna Plus 8.6-50 mg Softgel] 1 each PO DAILY #20 capsule No Action FLUoxetine HCL [PROzac] 60 mg PO QAM Ibuprofen [Motrin] 800 mg PO TID PRN PRN Reason: Menstrual Cramps/Arthritis Omeprazole 40 mg PO QAM Nortriptyline HCl [Pamelor] 50 mg PO AC-SUPPER Nortriptyline HCl [Pamelor] 50 mg PO HS Discharge Medication List FLUoxetine HCL [PROzac] 60 mg PO QAM 02/21/20 [History] Ibuprofen [Motrin] 800 mg PO TID PRN 07/28/20 [History] Omeprazole 40 mg PO QAM 07/28/20 [History] Nortriptyline HCl [Pamelor] 50 mg PO AC-SUPPER 02/08/23 [History] Nortriptyline HCl [Pamelor] 50 mg PO HS 05/12/23 [History] Aspirin [Adult Low Dose Aspirin EC] 81 mg PO BID #60 tab 05/19/23 [Rx] HYDROcodone/APAP 7.5-325MG [[place]endenin 7.5] 1 - 2 each PO Q6HR PRN #36 tab 05/19/23 [Rx] Sennosides/Docusate Sodium [Senna Plus 8.6-50 mg Softgel] 1 each PO DAILY #20 capsule 05/19/23 [Rx] Follow up Appointment(s)/Referral(s): [facility],Equipment [NON-STAFF] - As Needed (*Call [facility] once home to arrange delivery of the Continous Passive Motion (CPM) machine. ) [facility], [NON-STAFF] - 1-2 Days ([facility] will call you to schedule your in home physical therapy and nurse visits. ) Patient Instructions/Handouts: Knee Replacement (DC), Knee Replacement (GEN) Activity/Diet/Wound Care/Special Instructions: Orthopedic Discharge Instructions: 1. Wound care and infection precautions, , no lotions, creams, moisturizers. No soaking, pools, hot tubs. Do not scrub over incision. 2. Weight-bear as tolerated with walker / cane until follow-up. 3. Ice and elevate when necessary. Do not exceed 20 minutes per hour with ice pack. 4. Utilize compression sleeve until seen at first follow up appointment. 5. Pain meds and anticoagulants per prescription. 6. Pain medication has potential to cause constipation. Increase oral fluid and fiber intake. Contact primary care provider if you have not had a bowel movement within 48 hours after discharge. 7. No anti-inflammatory medication until discussed at first post operative visit, this including Motrin, Aleve, Mobic, Diclofenac. 8. Follow up in office at 2 weeks postop with Ryder Branch PA-C / KORI Smyth 9. Follow up with your primary care doctor 7-10 days after discharge. 10. Contact [facility] with any questions, . Keep incision clean, dry, intact. While showering, cover silver foam dressing with Saran wrap. Silver foam dressing may be removed beginning , 05/25/2023. Once dressing is removed, it is okay to shower directly over incision Discharge Disposition: HOME WITH HOME HEALTH SERVICES
--- NOTE | 2023-05-19 14:06 | P.PN ---
Subjective Progress Note Date: 05/19/23 Principal diagnosis: Right knee osteoarthritis Patient was seen at bedside this morning lying semirecumbent position with silver foam dressing present over right knee. Patient says she worked with therapy this morning and walked down the [place] and up-and-down stairs. Patient says she does need a walker for home. Patient says she has urinated several times since surgery yesterday. Patient says she did have a little bit of dizziness when she initially got up out of bed, but after a minute when she was up walking she felt fine. Patient denies chest pain, fever, shortness breath, nausea, vomiting, change in vision, loss of/bladder control. Objective - Vital Signs Vital signs: Vital Signs Temp 97.7 F 05/19/23 06:46 Pulse 89 05/19/23 06:46 Resp 18 05/19/23 08:28 BP 106/70 05/19/23 06:46 Pulse Ox 96 05/19/23 06:46 FiO2 Intake & Output 05/18/23 05/19/23 05/19/23 18:59 06:59 18:59 Intake Total 1950 1100 Output Total 65 Balance 1885 1100 Weight 86.9 kg Intake: IV 1450 Intake, IV Titration 500 1100 Amount Lactated Ringers 1,000 ml 500 1100 @ 100 mls/hr IV .Q10H LYLE Rx#:[id number] Output: Estimated Blood Loss 65 Other: Voiding Method Toilet Toilet # Voids 1 2 - Exam Right knee: Incision is clean, dry, and intact. The silver foam dressing is in good condition. There is minimal soft tissue swelling and ecchymosis surrounding the medial and lateral aspects of the incision. Calf is soft, no tenderness with palpation. Plantar flexion, dorsiflexion, EHL, FHL are intact. Sensory exam to light touch throughout the extremity is intact, dorsal pedis pulses 2+. - Labs CBC & Chem 7: 05/19/23 05:53 05/19/23 05:53 Labs: Abnormal Lab Results - Last 24 Hours (Table) 05/19/23 05/19/23 Range/Units 05:53 05:53 RBC 3.45 L (4.10-5.60) X 10*6/uL Hgb 10.0 L (12.0-17.0) g/dL Hct 31.6 L (37.2-50.0) % MCHC 31.6 L (32.0-37.0) g/dL Glucose 111 H (70-110) mg/dL Assessment and Plan Assessment: 1. Right knee osteoarthritis - Postop day #1 status post right total knee arthroplasty Plan: 1. Right knee osteoarthritis - right total knee arthroplasty performed yesterday, , 05/18/2023. Patient stable at bedside this morning. Patient did well with PT. Prescription for walker was signed. Discharge home today with health services. 2. Appreciate medical management 3. Pain management - [place] 4. DVT prophylaxis - Lovenox in hospital. Going home with aspirin 81 mg twice a day 30 days 5. GI prophylaxis - senna 6. PT/OT - weightbearing as tolerated with walker 7. Encourage incentive spirometer use 8. Discharge planning - home today with health services Time with Patient: Less than 30
--- NOTE | 2023-05-19 14:14 | P.PN ---
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 Patient tolerated the procedure very well. Postoperatively blood pressure went up to 154 over 97 mmHg pulse 88 and pulse ox 98% on room air. Otherwise patient denies any complaints of chest pain or shortness of breath. No nausea or vomiting. No cough or sputum production. Patient is complaining of right knee pain which is fairly controlled with medications. No fever no chills. Denies any recent illnesses. Laboratory data is not available at this time. 05/19/2023 Patient is evaluated today resting in bed. Patient reports minimal to no pain in the right knee. She is postoperative day #1. Postoperative labs reveal a white blood cell count of 5.78, hgb 10.0, sodium 135, potassium 4.3, BUN 11.5, creatinine 0.7. glucose 111. Hemodynamically she is stable. Was evaluated by PT and cleared for DC home with homecare. REVIEW OF SYSTEMS: CONSTITUTIONAL: No fever, no malaise, no fatigue. HEENT: No recent visual problems or hearing problems. Denied any sore throat. CARDIOVASCULAR: No chest pain, orthopnea, PND, no palpitations, no syncope. PULMONARY: No shortness of breath, no cough, no hemoptysis. GASTROINTESTINAL: No diarrhea, no nausea, no vomiting, no abdominal pain. NEUROLOGICAL: No headaches, no weakness, no numbness. PHYSICAL EXAMINATION: GENERAL: The patient is alert and oriented x3, not in any acute distress. Well developed, well nourished. HEENT: Pupils are round and equally reacting to light. EOMI. No scleral icterus. No conjunctival pallor. Normocephalic, atraumatic. No pharyngeal erythema. No thyromegaly. CARDIOVASCULAR: S1 and S2 present. No murmurs, rubs, or gallops. PULMONARY: Chest is clear to auscultation, no wheezing or crackles. ABDOMEN: Soft, nontender, nondistended, normoactive bowel sounds. No palpable organomegaly. MUSCULOSKELETAL: No joint swelling or deformity. EXTREMITIES: No cyanosis, clubbing, or pedal edema. NEUROLOGICAL: Gross neurological examination did not reveal any focal deficits. SKIN: No rashes. Assessment Status post right total knee arthroplasty postoperative day 1 Elevated blood pressure. Improved now likely due to pain GERD Osteoarthritis History of mouth and neck cancer status post chemo and radiation 6 years ago Cognitive impairmentmom is POA Brain injury as an infant Depression DVT prophylaxis patient is on Lovenox subcu GI prophylaxis patient is on PPI Plan: Patient will be continued on current pain management, bowel regimen. Encourage incentive spirometry. Continue GI and DVT prophylaxis. Encourage incentive spirometry. PT OT. Cleared by PT/OT for discharge home with homecare. Orthopedics recommending aspirin 81 mg BID on discharge for 30 days. Cleared medically for DC. Thank you for your consult. The impression and plan of care has been dictated by Prema Nava, Nurse Practitioner as directed. Dr. Mustapha MD I have performed a history and physical examination and medical decision making of this patient, discussed the same with the dictator, and agree with the dictators assessment and plan as written, documented as a scribe. Based on total visit time, I have performed more than 50% of this visit. Objective - Vital Signs Vital signs: Vital Signs Temp 97.7 F 05/19/23 06:46 Pulse 89 05/19/23 06:46 Resp 18 05/19/23 08:28 BP 106/70 05/19/23 06:46 Pulse Ox 96 05/19/23 06:46 FiO2 Intake & Output 05/18/23 05/19/23 05/19/23 18:59 06:59 18:59 Intake Total 1950 1100 Output Total 65 Balance 1885 1100 Weight 86.9 kg Intake: IV 1450 Intake, IV Titration 500 1100 Amount Lactated Ringers 1,000 ml 500 1100 @ 100 mls/hr IV .Q10H LYLE Rx#:[id number] Output: Estimated Blood Loss 65 Other: Voiding Method Toilet Toilet # Voids 1 2 - Labs CBC & Chem 7: 05/19/23 05:53 05/19/23 05:53 Labs: Abnormal Lab Results - Last 24 Hours (Table) 05/19/23 05/19/23 Range/Units 05:53 05:53 RBC 3.45 L (4.10-5.60) X 10*6/uL Hgb 10.0 L (12.0-17.0) g/dL Hct 31.6 L (37.2-50.0) % MCHC 31.6 L (32.0-37.0) g/dL Glucose 111 H (70-110) mg/dL Assessment and Plan Time with Patient: Less than 30
== END 2023-05-19 15:53 | disposition home health service (06) ==
LOC: OR 08:04 → 4SSUR 13:12 → OR 05-19 15:53
PROVIDERS: ATTEND Orthopaedic Surgery
DX: M17.11 Unilateral primary osteoarthritis, right knee (principal); F32.A Depression, unspecified; K21.9 Gastro-esophageal reflux disease without esophagitis; Z79.01 Long term (current) use of anticoagulants
CPT/HCPCS: 27447; 97161; 81025; 64999; 64448; 80048; 85025; 73560; C1776; C1713 ×2; C1751; J2250; J3370; J1100; J2405; J1650; J1170 ×2; J2795

== ENCOUNTER 2024-08-20 10:33 | Day surgery (SDC) | payer MEDICAID, OTHER ==
[2024-08-19 09:59] VITALS: BMI 33.3
[2024-08-20] MEDS: IV FLUID CONTINUATION 1,000 ML IV ONE (12:02)
[2024-08-20 12:13] VITALS: TEMP 97.3
[2024-08-20] MEDS: LACTATED RINGERS 1,000 ML BAG IV STA (12:17)
[2024-08-20] MEDS ORDERED: LIDOCAINE 2% (PF) 20 MG/ML 5 ML VIAL ONE (12:39)
[2024-08-20] MEDS ORDERED: PROPOFOL 10 MG/ML 20 ML VIAL IV ONE (12:39)
--- NOTE | 2024-08-20 12:50 | P.PCN ---
Date of Procedure: 08/20/24 Procedure(s) Performed: BRIEF HISTORY: Patient is a 54-year-old, pleasant, white female scheduled for an upper endoscopy as a part of evaluation of intermittent dysphagia to solids.. PROCEDURE PERFORMED: Esophagogastroduodenoscopy with biopsy and dilation. PREOPERATIVE DIAGNOSIS: Intermittent dysphagia to solids. IV sedation per anesthesia. PROCEDURE: After informed consent was obtained, the patient was brought into the endoscopy unit. IV sedation was administered by Anesthesia under continuous monitoring. Initially the Olympus GIF-140 video endoscope was inserted into the mouth. Esophagus intubated without any difficulty. It was gradually advanced into the stomach and duodenum and carefully examined. The bulb and the second part of the duodenum appeared normal. The scope at this time was withdrawn to the stomach, adequately insufflated with air, and upon careful examination, mucosa of the antrum, body, cardia and the fundus appeared normal. The scope was then withdrawn into the esophagus. Mild hiatal hernia noted. The GE junction was located at 39 cm from the incisors. The distal esophagus stricture identified that was dilated with 18 to 20 mm TTS balloon for 60 seconds. Mucosa in the distal esophagus had slightly thickened folds and hence biopsies were done from this area to rule out eosinophilic esophagitis. The rest of the esophagus appeared normal. There were no erosions or ulcerations seen and the patient tolerated the procedure well. IMPRESSION: 1. Distal esophageal stricture status post balloon dilation using 18 to 20 mm TTS balloon. 2. Small hiatal hernia 3. Thickened distal esophageal folds status post biopsies rule out eosinophilic esophagitis. RECOMMENDATIONS: The findings of this examination were discussed with the patient as well as her family. She was advised to be on clear liquids for 2 hours. Continue with omeprazole 20 mg twice daily. Follow-up in the office in 2 to 3 weeks..
[2024-08-20] MEDS: IV FLUID CONTINUATION 700 ML IV ONE (12:56)
[2024-08-20 13:31] VITALS: BP 125/84; PULSE 58; RESP 18
== END 2024-08-20 13:37 | disposition home or self-care (01) ==
LOC: ORWHC2ENDO 10:33
PROVIDERS: ATTEND Internal Medicine Gastroenterology
DX: K21.00 Gastro-esophageal reflux disease with esophagitis, without bleeding (principal); K44.9 Diaphragmatic hernia without obstruction or gangrene; F32.A Depression, unspecified; Z87.820 Personal history of traumatic brain injury; Z85.818 Personal history of malignant neoplasm of other sites of lip, oral cavity, and pharynx; Z88.1 Allergy status to other antibiotic agents; Z88.3 Allergy status to other anti-infective agents; Z79.899 Other long term (current) drug therapy
CPT/HCPCS: 88305; 43239; 43249; J2704; J2003; C1726; 88312

== ENCOUNTER → 2024-09-23 | Outpatient (CLI) | payer OTHER ==
--- NOTE | 2024-09-23 22:32 | MR ---
EXAMINATION TYPE: MR lumbar spine wo con DATE OF EXAM: 09/23/2024 8:43 PM COMPARISON: 09/01/2024.. CLINICAL INDICATION: Female, 54 years old with history of M42.06, M54.16, M54.50; PHH, Scoliosis, low back pain that radiates down right leg. TECHNIQUE: Multi planar, multi sequence imaging was performed utilizing: T1-weighted, T2-weighted, a nd turbo inversion recovery imaging of the lumbar spine. IV Contrast: mL (None, if empty) FINDINGS: Alignment: The lumbar vertebral bodies have preserved heights. Increased lordosis of the spine. Cord: The conus medullaris and the distal spinal cord appear unremarkable with regards to their signa l intensity and morphology. Bones/Discs: Moderate degeneration changes throughout the spine with osteophyte formation and facet j oint arthropathy. Multilevel disc desiccation is present. Reactive adjoining endplate edema at anteri or T12-L1. Pseudoarthrosis of the spinous processes. T12-L1: No evidence of significant spinal canal stenosis or neural foraminal stenosis. L1-L2: No evidence of significant spinal canal stenosis or neural foraminal stenosis. L2-L3: Disc bulge and facet joint arthropathy result in mild spinal canal and moderate to severe left and moderate right Neural foraminal stenosis. L3-L4: Disc bulge and facet joint arthropathy result in mild spinal canal and moderate to severe left and moderate right Neural foraminal stenosis. L4-L5: Disc bulge and facet joint arthropathy result in mild spinal canal and severe right and modera te left neural foraminal stenosis. L5-S1: The disc has a rounded posterior morphology without significant spinal canal stenosis. Facet j oint arthropathy with moderate to severe right and mild left bilateral neural foraminal stenosis. No significant spinal canal or neural foraminal stenosis in the remainder of the visualized levels. Other findings: Right adnexal probably ovarian dominant follicle measuring up to 18 mm the endometri um is partially visualized. Perineural cysts are seen at the level of S2 measuring up to 16 mm on the left. IMPRESSION: 1. No definitive evidence of disc herniation or significant spinal canal stenosis. 2. Moderate disc degeneration with associated osteoarthritic changes with increased lordosis of the spine. 3. L4-L5 severe right and moderate left neural foraminal stenosis secondary osteophytes. 4. L5-S1 moderate to severe right neural foraminal stenosis secondary to osteophytes. 5. L2-L3 and L3-L4 moderate to severe left neural foraminal stenosis. 6. [facility], , 09/23/2024 10:30 PM
== END | disposition home or self-care (01) ==
LOC: RADMRIMAIN 20:15
PROVIDERS: ATTEND Orthopaedic Surgery
DX: M42.06 Juvenile osteochondrosis of spine, lumbar region (principal); M48.061 Spinal stenosis, lumbar region without neurogenic claudication; M51.16 Intervertebral disc disorders with radiculopathy, lumbar region; M25.78 Osteophyte, vertebrae; M47.26 Other spondylosis with radiculopathy, lumbar region
CPT/HCPCS: 72148

== ENCOUNTER → 2024-12-04 | Outpatient (CLI) | payer OTHER ==
--- NOTE | 2024-12-04 11:20 | US ---
EXAMINATION TYPE: US abdomen complete DATE OF EXAM: 12/04/2024 COMPARISON: NONE CLINICAL INDICATION: Female, 54 years old with history of R10.2 PELVIC AND PERINEAL PAIN; Pain since Monday - patient denies any other signs, symptoms, or relevant history TECHNIQUE: Grayscale and color Doppler imaging of the abdomen was performed. FINDINGS: EXAM MEASUREMENTS: Liver Length: 17.2 cm Gallbladder Wall: 0.2 cm CBD: 0.2 cm, color Doppler imaging was utilized to isolate the common bile duct for measurement. Spleen: 7.9 cm Right Kidney: 11.0 x 5.3 x 4.9 cm Left Kidney: 10.0 x 5.9 x 4.8 cm [employer] NOTES: Overall limited visualization due to bowel gas, appears WNL as visualized Pancreas: The head is obscured by bowel gas shadowing. Otherwise, no gross abnormalities. Liver: Borderline in size. No focal lesion seen. Gallbladder: wnl Evidence for sonographic Parrish's sign: No CBD: wnl Spleen: wnl Right Kidney: wnl, No hydronephrosis, calculi or masses seen Left Kidney: wnl, No hydronephrosis, calculi or masses seen Upper IVC: wnl Abd Aorta: wnl IMPRESSION: 1. Limited detailed visualization of various structures due to bowel gas. 2. Borderline sized liver. 2. No gallstones or biliary ductal dilatation. [facility], Workstation: [id number], 12/04/2024 11:18 AM
--- NOTE | 2024-12-04 11:23 | US ---
EXAMINATION TYPE: US pelvic complete DATE OF EXAM: 12/04/2024 COMPARISON: NONE CLINICAL INDICATION: Female, 54 years old with history of PAIN; In menopause, LMP over one year ago, bleeding since Monday, patient denies any other signs, symptoms, or relevant history TECHNIQUE: Transvaginal (TV). Transabdominal grayscale sonographic images of the pelvis were acquired. Transvaginal sonographic de clined by patient Doppler imaging: Not performed. FINDINGS: Date of LMP: Over a year ago EXAM MEASUREMENTS: Uterus: 10.1 x 5.9 x 5.5 cm Endometrial Stripe: Septated, R=1.0, L=1.2 cm Right Ovary: 3.3 x 2.9 x 2.8 cm Left Ovary: 2.1 x 2.4 x 2.0 cm 1. Uterus: Anteverted and otherwise wnl 2. Endometrium: Possible fundal septation leading to 2 separate endometrial horns measuring up to 1. 2 cm thick on the left and 1.0 cm thick on the right. 3. Right Ovary: wnl 4. Left Ovary: wnl 5. Bilateral Adnexa: wnl 6. Posterior cul-de-sac: wnl IMPRESSION: There appear to be 2 separate endometrial or horns favoring septate uterus. Both endometrial stripes appeared thickened measuring 1.0 cm and 1.2 cm. If there is postmenopausal bleeding, differential con siderations include endometrial hyperplasia, underlying polyps, or endometrial carcinoma. [facility], , 12/04/2024 11:20 AM
[2024-12-04 11:50] LABS: Basophils # (A) 0.06 10*3/uL (0.00-0.10); Basophils % (A) 0.4 %; Eosinophils # (A) 0.17 10*3/uL (0.04-0.35); Eosinophils % (A) 1.2 %; HCT 35.0 % (37.2-46.3); HGB 12.2 g/dL (12.0-15.0); Lymphocytes # (A) 1.22 10*3/uL (0.90-5.00); Lymphocytes % (A) 9.0 %; MCH 30.8 pg (27.0-32.0); MCHC 34.9 g/dL (32.0-37.0); MCV 88.4 fL (80.0-97.0); Monocytes # (A) 0.94 10*3/uL (0.20-1.00); Monocytes % (A) 6.9 %; Neutrophils # (A) 11.17 10*3/uL (1.80-7.70); Neutrophils % (A) 82.1 %; Platelet Count 234 10*3/uL (140-440); RBC 3.96 10*6/uL (4.10-5.20); RDW 16.0 % (11.5-14.5); WBC 13.61 10*3/uL (4.50-10.00)
[2024-12-04 12:01] LABS: ALT 20 U/L (4-34); AST 22 U/L (14-36); African American GFR (CKD) >90 (>60 ml/min/1.73 sqM); Albumin 3.8 g/dL (3.5-5.0); Albumin/Globulin Ratio 1.3; Alkaline Phosphatase 97 U/L (38-126); Anion Gap 4 mmol/L; Blood Urea Nitrogen 11 mg/dL (7-17); Calcium 9.3 mg/dL (8.4-10.2); Carbon Dioxide 28 mmol/L (22-30); Chloride 103 mmol/L (98-107); Globulin 2.9 g/dL; Glucose 93 mg/dL (74-99); Non-African American GFR(CKD) >90 (>60 ml/min/1.73 sqM); Potassium 4.7 mmol/L (3.5-5.1); Sodium 135 mmol/L (137-145); Total Protein 6.7 g/dL (6.3-8.2)
== END | disposition home or self-care (01) ==
LOC: RADUSWWP 10:40
PROVIDERS: ATTEND Family Medicine
DX: N92.1 Excessive and frequent menstruation with irregular cycle (principal); N85.00 Endometrial hyperplasia, unspecified
CPT/HCPCS: 76700; 76856; 80053; 85025